=== PATIENT | male | born 1950 | race Two or more races ===

== ENCOUNTER 2016-12-21 18:26 | Emergency (ER) | payer SELFPAY ==
[~2016-12-21] VITALS: Ht 167.6 cm; Wt 86.2 kg
[2016-12-21] MEDS ORDERED: TYLENOL EXTRA500 MG ORAL (19:25)
[2016-12-21 19:35] VITALS: BP 208/97
[2016-12-21 20:00] VITALS: BP 208/97
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
== END 2016-12-21 20:00 | disposition home or self-care (01) ==
LOC: EDBD 18:26 → EMR 19:56
DX: M54.9 Dorsalgia, unspecified (principal); Z88.0 Allergy status to penicillin
CPT/HCPCS: 99284

== ENCOUNTER 2017-10-06 19:31 | Inpatient (IN) | payer OTHER ==
[~2017-10-06] VITALS: Ht 180.3 cm; Wt 88.0 kg
[~2017-10-06 19:31] MED LIST: TYLENOL EXTRA500 MG ORAL
[2017-10-06 19:45] VITALS: BP 139/71
[2017-10-06 19:53] VITALS: BP 152/79
[2017-10-06 21:33] LABS: BASOPHILS % (AUTO) 1.2 % (0.0-2.0); EOSINOPHILS % (AUTO) 1.5 % (0.0-3.0); HEMATOCRIT 32.9 % (42.0-52.0); HEMOGLOBIN 10.6 G/DL (14.2-18.0); LYMPHOCYTES % (AUTO) 23.5 % (20.0-45.0); MEAN CORPUSCULAR VOLUME 88 FL (80-99); MONOCYTES % (AUTO) 13.3 % (1.0-10.0); NEUTROPHILS % (AUTO) 60.5 % (45.0-75.0); PLATELET COUNT 181 K/UL (150-450); RED BLOOD COUNT 3.75 M/UL (4.70-6.10); RED CELL DISTRIBUTION WIDTH 15.2 % (11.6-14.8); WHITE BLOOD COUNT 5.1 K/UL (4.8-10.8)
[2017-10-06 21:44] LABS: ANION GAP 6 mmol/L (5-15); BLOOD UREA NITROGEN 52 mg/dL (7-18); CALCIUM 10.2 MG/DL (8.5-10.1); CARBON DIOXIDE 35 MMOL/L (21-32); CHLORIDE 96 MMOL/L (98-107); CREATININE 11.6 MG/DL (0.55-1.30); POTASSIUM 4.7 MMOL/L (3.5-5.1); SODIUM 137 MMOL/L (136-145)
[2017-10-06 21:49] LABS: ALANINE AMINOTRANSFERASE 14 U/L (12-78); ALBUMIN 3.1 G/DL (3.4-5.0); ALBUMIN/GLOBULIN RATIO 0.6 (1.0-2.7); ALKALINE PHOSPHATASE 69 U/L (46-116); ASPARTATE AMINO TRANSFERASE 10 U/L (15-37); BILIRUBIN,TOTAL 0.4 MG/DL (0.2-1.0)
[2017-10-06 22:00] VITALS: BP 148/68
--- NOTE | 2017-10-06 22:37 | Emergency Room Report ---
History of Present Illness General Chief Complaint: Wound Recheck/Suture Removal Source: Medical Record, EMS Present Illness HPI Patient is a 66-year-old male brought in by EMS after increased left foot swelling and discomfort. Patient had prior history of dementia and end-stage renal disease as well as diabetes. He was noted to have the penicillin allergy. He had been taking oral clindamycin. The patient had previously been ambulatory. The patient was sent in from [facility]. Is normally dialyzed Wednesday and Wednesday Allergies: Coded Allergies: PENICILLINS (Verified Allergy, Unknown, 10/06/17) Patient History Past Medical History: see triage record Reviewed Nursing Documentation: PMH: Agreed; PSxH: Agreed Nursing Documentation-PMH Past Medical History: No History, Except For Hx Hypertension: Yes Hx Dialysis: Yes - T, TH, SAT, -Shunt on Left arm Review of Systems All Other Systems: negative except mentioned in HPI Physical Exam Vital Signs Date Time Temp Pulse Resp B/P (MAP) Pulse Ox O2 Delivery O2 Flow Rate FiO2 10/06/17 19:31 99.4 64 16 139/71 98 Room Air 99.3 Sp02 EP Interpretation: reviewed, normal General Appearance: normal inspection, well appearing, no apparent distress, alert, GCS 15 Head: atraumatic ENT: normal ENT inspection, hearing grossly normal, normal voice Neck: normal inspection, full range of motion, supple, no bony tend Respiratory: normal inspection, lungs clear, normal breath sounds, no respiratory distress, no retraction, no wheezing Cardiovascular #1: regular rate, rhythm, no edema Gastrointestinal: normal inspection, normal bowel sounds, non tender, soft, no guarding, no hernia Genitourinary: no CVA tenderness Musculoskeletal: normal inspection, back normal, normal range of motion Neurologic: normal inspection, alert, responsive, speech normal Psychiatric: normal inspection, judgement/insight normal, mood/affect normal Skin: other - swelling to lateral aspect of left foot. ulceration to right foot Medical Decision Making Diagnostic Impression: Primary Impression: Right foot infection Additional Impressions: Diabetes Toe deformity, acquired ESRD (end stage renal disease) ER Course Patient presented for foot pain. Differential diagnoses included wasn't limited to fracture, sprain, dislocation, osteomyelitis, infected foot ulcer among others. Because of complexity of patient's case laboratory testing and imaging studies were ordered.Patient was noted to have evidence of the infection to the right foot. The patient started on IV antibiotics.Dr. Moise was contacted for inpatient management due to need for inpatient monitoring and treatment. Dr. Umaña was contacted for inpatient management. Labs Test 10/06/17 21:15 White Blood Count 5.1 K/UL (4.8-10.8) Red Blood Count 3.75 M/UL (4.70-6.10) Hemoglobin 10.6 G/DL (14.2-18.0) Hematocrit 32.9 % (42.0-52.0) Mean Corpuscular Volume 88 FL (80-99) Mean Corpuscular Hemoglobin 28.3 PG (27.0-31.0) Mean Corpuscular Hemoglobin Concent 32.3 G/DL (32.0-36.0) Red Cell Distribution Width 15.2 % (11.6-14.8) Platelet Count 181 K/UL (150-450) Mean Platelet Volume 5.9 FL (6.5-10.1) Neutrophils (%) (Auto) 60.5 % (45.0-75.0) Lymphocytes (%) (Auto) 23.5 % (20.0-45.0) Monocytes (%) (Auto) 13.3 % (1.0-10.0) Eosinophils (%) (Auto) 1.5 % (0.0-3.0) Basophils (%) (Auto) 1.2 % (0.0-2.0) Prothrombin Time 10.0 SEC (9.30-11.50) Prothromb Time International Ratio 1.0 (0.9-1.1) Activated Partial Thromboplast Time 26 SEC (23-33) Sodium Level 137 MMOL/L (136-145) Potassium Level 4.7 MMOL/L (3.5-5.1) Chloride Level 96 MMOL/L (98-107) Carbon Dioxide Level 35 MMOL/L (21-32) Anion Gap 6 mmol/L (5-15) Blood Urea Nitrogen 52 mg/dL (7-18) Creatinine 11.6 MG/DL (0.55-1.30) Estimat Glomerular Filtration Rate 4.4 mL/min (>60) Glucose Level 157 MG/DL (74-106) Calcium Level 10.2 MG/DL (8.5-10.1) Total Bilirubin 0.4 MG/DL (0.2-1.0) Aspartate Amino Transf (AST/SGOT) 10 U/L (15-37) Alanine Aminotransferase (ALT/SGPT) 14 U/L (12-78) Alkaline Phosphatase 69 U/L (46-116) Total Protein 8.0 G/DL (6.4-8.2) Albumin 3.1 G/DL (3.4-5.0) Globulin 4.9 g/dL Albumin/Globulin Ratio 0.6 (1.0-2.7) Last Vital Signs Date Time Temp Pulse Resp B/P (MAP) Pulse Ox O2 Delivery O2 Flow Rate FiO2 10/06/17 22:00 72 18 148/68 100 Room Air 10/06/17 19:53 98.2 98.2 Status: unchanged Disposition: ADMITTED INPATIENT Condition: Serious Referrals: NON PHYSICIAN (PCP) Rashad Harris MD Oct 06, 2017 22:36
[2017-10-06 22:43] VITALS: BP 148/68
[2017-10-06] MEDS ORDERED: AMLODIPINE BESY10 MG ORAL (23:28)
[2017-10-06] MEDS ORDERED: FOLIC ACID1 MG ORAL (23:28)
[2017-10-06] MEDS ORDERED: LEVEMIR FL100 UNIT/1 SUBQ (23:28)
[2017-10-06] MEDS ORDERED: CARVEDILOL25 MG ORAL (23:28)
[2017-10-06] MEDS ORDERED: CALCIUM ACETAT667 M1 PO (23:28)
[2017-10-06] MEDS ORDERED: ATORVASTATIN CA40 MG ORAL (23:28)
[2017-10-06] MEDS ORDERED: BASAGLAR INJ (23:28)
[2017-10-06] MEDS ORDERED: DIPHENOXYLATE-1 EACH PO (23:28)
[2017-10-06] MEDS ORDERED: BENAZEPRIL HCL20 MG ORAL (23:28)
[2017-10-06 23:41] VITALS: BP 158/89
[2017-10-07] MEDS ORDERED: Lomotil 2.5mg tab ORAL PRN
[2017-10-07] MEDS ORDERED: Acetaminophen 500mg (ES) tab ORAL PRN
[2017-10-07] MEDS: Carvedilol 25mg Tab ORAL SCH ×3 (00:41→21:39)
[2017-10-07] MEDS: Atorvastatin 80mg tab ORAL SCH ×2 (00:41→21:40)
[2017-10-07] MEDS: Heparin 5000 units/ml inj SUBQ SCH ×4 (00:42→21:48)
[2017-10-07 04:40] VITALS: BP 148/85
[2017-10-07] MEDS: NovoLOG Insulin Flexpen SUBQ SCH ×5 (05:16→21:50)
[2017-10-07 07:41] LABS: BASOPHILS % (AUTO) 0.7 % (0.0-2.0); EOSINOPHILS % (AUTO) 2.5 % (0.0-3.0); HEMATOCRIT 31.4 % (42.0-52.0); HEMOGLOBIN 10.3 G/DL (14.2-18.0); MEAN CORPUSCULAR VOLUME 88 FL (80-99); MONOCYTES % (AUTO) 12.5 % (1.0-10.0); NEUTROPHILS % (AUTO) 62.4 % (45.0-75.0); PLATELET COUNT 199 K/UL (150-450); RED BLOOD COUNT 3.57 M/UL (4.70-6.10); WHITE BLOOD COUNT 4.9 K/UL (4.8-10.8)
[2017-10-07 08:00] VITALS: BP 172/85
[2017-10-07 08:20] LABS: ALANINE AMINOTRANSFERASE 14 U/L (12-78); ALBUMIN/GLOBULIN RATIO 0.7 (1.0-2.7); ALKALINE PHOSPHATASE 63 U/L (46-116); ANION GAP 9 mmol/L (5-15); ASPARTATE AMINO TRANSFERASE 10 U/L (15-37); BILIRUBIN,TOTAL 0.4 MG/DL (0.2-1.0); BLOOD UREA NITROGEN 55 mg/dL (7-18); CARBON DIOXIDE 33 MMOL/L (21-32); CHLORIDE 97 MMOL/L (98-107); CREATININE 12.4 MG/DL (0.55-1.30); POTASSIUM 4.7 MMOL/L (3.5-5.1); SODIUM 139 MMOL/L (136-145)
--- NOTE | 2017-10-07 08:41 | History & Physical ---
History and Physical History & Physicial seen and examined. Full Dictation completed Comment: time of this note, doesn't reflect actual time of the encounter Nadir Moise MD Oct 07, 2017 08:41
--- NOTE | 2017-10-07 08:41 | General Progress Note ---
Assessment/Plan Assessment/Plan S: I am ok O: appears in mild pain in right foot PHYSICAL EXAMINATION: HEAD AND NECK: Atraumatic and normocephalic. CHEST: Clear to auscultation. HEART: S1 and S2. Regular rate and rhythm. ABDOMEN: Soft. No organomegaly. MUSCULOSKELETAL: Positive for the AV graft/shunt in the left upper extremity. Positive for chronic Charcot foot on right side. appropriately dressed. Mild tenderness. NEUROLOGY: The patient is awake, alert and oriented x2. Positive for decline in the cognition. Lack of memory. PSYCHIATRIC: Mood and affect is anxious. Meds : Reviewed and reconciled. Including Vanco and cefepim ASSESSMENT AND PLAN: 1. Chronic pain in feet concerning for acute on chronic osteomyelitis. 2. Chronic Charcot feet (more on the right than the left). 3. Diabetes type 2. 4. End-stage renal disease, on hemodialysis. 5. Chronic anemia. 6. GI and DVT prophylaxis. Plan: Pending eval by Podiatry and ID services current IV antibiotic recement Subjective Allergies: Coded Allergies: PENICILLINS (Verified Allergy, Unknown, 10/06/17) Objective Last 24 Hour Vital Signs Date Time Temp Pulse Resp B/P (MAP) Pulse Ox O2 Delivery O2 Flow Rate FiO2 10/07/17 04:53 95 Room Air 10/07/17 04:40 97.6 72 20 148/85 95 Room Air 97.6 10/07/17 00:41 71 158/89 10/06/17 23:41 97.9 71 18 158/89 100 Room Air 97.9 10/06/17 23:35 98.1 78 18 148/68 100 Room Air 98.1 10/06/17 22:43 98.1 78 18 148/68 100 Room Air 98.1 10/06/17 22:00 72 18 148/68 100 Room Air 10/06/17 19:53 98.2 65 16 152/79 100 Room Air 98.2 10/06/17 19:45 99.0 89 18 139/71 98 Room Air 99.0 10/06/17 19:31 99.4 64 16 139/71 98 Room Air 99.3 Intake and Output 10/06/17 10/07/17 19:00 07:00 Intake Total 220 ml Balance 220 ml Intake Oral 120 ml IV Total 100 ml Laboratory Tests 10/06/17 21:15: White Blood Count 5.1, Red Blood Count 3.75L, Hemoglobin 10.6L, Hematocrit 32.9L , Mean Corpuscular Volume 88, Mean Corpuscular Hemoglobin 28.3, Mean Corpuscular Hemoglobin Concent 32.3, Red Cell Distribution Width 15.2H, Platelet Count 181, Mean Platelet Volume 5.9L, Neutrophils (%) (Auto) 60.5, Lymphocytes (%) (Auto) 23.5, Monocytes (%) (Auto) 13.3H, Eosinophils (%) (Auto) 1.5, Basophils (%) (Auto) 1.2, Prothrombin Time 10.0, Prothromb Time International Ratio 1.0, Activated Partial Thromboplast Time 26, Sodium Level 137, Potassium Level 4.7, Chloride Level 96L, Carbon Dioxide Level 35H, Anion Gap 6, Blood Urea Nitrogen 52H, Creatinine 11.6H, Estimat Glomerular Filtration Rate 4.4, Glucose Level 157H, Calcium Level 10.2H, Total Bilirubin 0.4, Aspartate Amino Transf (AST/SGOT) 10L, Alanine Aminotransferase (ALT/SGPT) 14, Alkaline Phosphatase 69, Total Protein 8.0, Albumin 3.1L, Globulin 4.9, Albumin/ Globulin Ratio 0.6L 10/07/17 07:20: White Blood Count 4.9, Red Blood Count 3.57L, Hemoglobin 10.3L, Hematocrit 31.4L , Mean Corpuscular Volume 88, Mean Corpuscular Hemoglobin 28.8, Mean Corpuscular Hemoglobin Concent 32.7, Red Cell Distribution Width 15.0H, Platelet Count 199, Mean Platelet Volume 6.6, Neutrophils (%) (Auto) 62.4, Lymphocytes (%) (Auto) 22.0, Monocytes (%) (Auto) 12.5H, Eosinophils (%) (Auto) 2.5, Basophils (%) (Auto) 0.7, Sodium Level 139, Potassium Level 4.7, Chloride Level 97L, Carbon Dioxide Level 33H, Anion Gap 9, Blood Urea Nitrogen 55H, Creatinine 12.4H, Estimat Glomerular Filtration Rate 4.1, Glucose Level 116H, Calcium Level 10.0, Total Bilirubin 0.4, Aspartate Amino Transf (AST/SGOT) 10L, Alanine Aminotransferase (ALT/SGPT) 14, Alkaline Phosphatase 63, Total Protein 7.6, Albumin 3.0L, Globulin 4.6, Albumin/Globulin Ratio 0.7L Height (Feet): 5 Height (Inches): 11.00 Weight (Pounds): 178 Nadir Moise MD Oct 07, 2017 08:41
[2017-10-07] MEDS: Calcium Acetate 667mg Tab ORAL SCH ×3 (09:05→18:32)
--- NOTE | 2017-10-07 10:04 | Consultation ---
Consult Note Consult Note asked to eval for dialysis management Patient is a 66-year-old male brought in by EMS after increased left foot swelling and discomfort. Patient had prior history of dementia and end-stage renal disease as well as diabetes. He was noted to have the penicillin allergy. He had been taking oral clindamycin. The patient had previously been ambulatory. The patient was sent in from [facility]. Is normally dialyzed Wednesday and Wednesday Allergies: PENICILLINS (Verified Allergy, Unknown, 10/06/17) Past Medical History: No History, Except For Hx Hypertension: Yes Hx Dialysis: Yes - T, TH, SAT, -Shunt on Left arm non historian examined data reviewed Assessment/Plan ESRD (end stage renal disease) due HD today has left arm fistula Dementia HTN Right foot infection Diabetes Toe deformity, acquired Plab: HD today BP management PELON ESCALONA Oct 07, 2017 10:04
[2017-10-07 10:32] LABS: PHOSPHORUS 3.4 MG/DL (2.5-4.9)
--- NOTE | 2017-10-07 11:53 | Diagnostic Imaging Report ---
Indication: Pain Comparison: None Findings: 3 views of the right foot were obtained. There is absence of most of the fifth proximal phalange and a part of the middle phalange. Correlate clinically. Osteomyelitis is not excluded. Soft tissue swelling is noted involving the fifth toe. Bones are osteopenic. Prominent calcaneal spur noted. Extensive vascular calcifications are present. IMPRESSION: Prominent erosion involving the middle and proximal fifth phalange. Correlate for acute osteomyelitis
[2017-10-07 12:00] VITALS: BP 166/81
--- NOTE | 2017-10-07 12:18 | Infectious Diseases Prog Note ---
Assessment/Plan Problems: (1) Right foot infection Assessment & Plan: will start vancomycin with cefepime empiric coverage, and order MRI of the foot to rule out osteomyelitis, check ESR (2) Foot osteomyelitis, right Assessment & Plan: right fifth toe infection with erosions on X ray , rule out underlying osteomyelitis, will order ESR, and MRI of the right foot (3) ESRD (end stage renal disease) Assessment & Plan: on HD renal is following (4) Diabetes Assessment & Plan: recommend tight glycemic control to keep blood glucose between 100-140 Subjective Allergies: Coded Allergies: PENICILLINS (Verified Allergy, Unknown, 10/06/17) Objective Vital Signs Last 24 Hour Vital Signs Date Time Temp Pulse Resp B/P (MAP) Pulse Ox O2 Delivery O2 Flow Rate FiO2 10/07/17 12:00 98.0 71 18 166/81 97 Room Air 98.0 10/07/17 09:06 97 172/85 10/07/17 09:06 97 172/85 10/07/17 08:00 Room Air 10/07/17 08:00 97.0 75 19 172/85 99 97.0 10/07/17 04:53 95 Room Air 10/07/17 04:40 97.6 72 20 148/85 95 Room Air 97.6 10/07/17 00:41 71 158/89 10/06/17 23:41 97.9 71 18 158/89 100 Room Air 97.9 10/06/17 23:35 98.1 78 18 148/68 100 Room Air 98.1 10/06/17 22:43 98.1 78 18 148/68 100 Room Air 98.1 10/06/17 22:00 72 18 148/68 100 Room Air 10/06/17 19:53 98.2 65 16 152/79 100 Room Air 98.2 10/06/17 19:45 99.0 89 18 139/71 98 Room Air 99.0 10/06/17 19:31 99.4 64 16 139/71 98 Room Air 99.3 Height (Feet): 5 Height (Inches): 11.00 Weight (Pounds): 177 Laboratory Tests Test 10/06/17 21:15 10/07/17 07:20 White Blood Count 5.1 K/UL (4.8-10.8) 4.9 K/UL (4.8-10.8) Red Blood Count 3.75 M/UL (4.70-6.10) L 3.57 M/UL (4.70-6.10) L Hemoglobin 10.6 G/DL (14.2-18.0) L 10.3 G/DL (14.2-18.0) L Hematocrit 32.9 % (42.0-52.0) L 31.4 % (42.0-52.0) L Mean Corpuscular Volume 88 FL (80-99) 88 FL (80-99) Mean Corpuscular Hemoglobin 28.3 PG (27.0-31.0) 28.8 PG (27.0-31.0) Mean Corpuscular Hemoglobin Concent 32.3 G/DL (32.0-36.0) 32.7 G/DL (32.0-36.0) Red Cell Distribution Width 15.2 % (11.6-14.8) H 15.0 % (11.6-14.8) H Platelet Count 181 K/UL (150-450) 199 K/UL (150-450) Mean Platelet Volume 5.9 FL (6.5-10.1) L 6.6 FL (6.5-10.1) Neutrophils (%) (Auto) 60.5 % (45.0-75.0) 62.4 % (45.0-75.0) Lymphocytes (%) (Auto) 23.5 % (20.0-45.0) 22.0 % (20.0-45.0) Monocytes (%) (Auto) 13.3 % (1.0-10.0) H 12.5 % (1.0-10.0) H Eosinophils (%) (Auto) 1.5 % (0.0-3.0) 2.5 % (0.0-3.0) Basophils (%) (Auto) 1.2 % (0.0-2.0) 0.7 % (0.0-2.0) Prothrombin Time 10.0 SEC (9.30-11.50) Prothromb Time International Ratio 1.0 (0.9-1.1) Activated Partial Thromboplast Time 26 SEC (23-33) Sodium Level 137 MMOL/L (136-145) 139 MMOL/L (136-145) Potassium Level 4.7 MMOL/L (3.5-5.1) 4.7 MMOL/L (3.5-5.1) Chloride Level 96 MMOL/L (98-107) L 97 MMOL/L (98-107) L Carbon Dioxide Level 35 MMOL/L (21-32) H 33 MMOL/L (21-32) H Anion Gap 6 mmol/L (5-15) 9 mmol/L (5-15) Blood Urea Nitrogen 52 mg/dL (7-18) H 55 mg/dL (7-18) H Creatinine 11.6 MG/DL (0.55-1.30) H 12.4 MG/DL (0.55-1.30) H Estimat Glomerular Filtration Rate 4.4 mL/min (>60) 4.1 mL/min (>60) Glucose Level 157 MG/DL (74-106) H 116 MG/DL (74-106) H Calcium Level 10.2 MG/DL (8.5-10.1) H 10.0 MG/DL (8.5-10.1) Total Bilirubin 0.4 MG/DL (0.2-1.0) 0.4 MG/DL (0.2-1.0) Aspartate Amino Transf (AST/SGOT) 10 U/L (15-37) L 10 U/L (15-37) L Alanine Aminotransferase (ALT/SGPT) 14 U/L (12-78) 14 U/L (12-78) Alkaline Phosphatase 69 U/L (46-116) 63 U/L (46-116) Total Protein 8.0 G/DL (6.4-8.2) 7.6 G/DL (6.4-8.2) Albumin 3.1 G/DL (3.4-5.0) L 3.0 G/DL (3.4-5.0) L Globulin 4.9 g/dL 4.6 g/dL Albumin/Globulin Ratio 0.6 (1.0-2.7) L 0.7 (1.0-2.7) L Hemoglobin A1c 5.4 % (4.3-6.0) Phosphorus Level 3.4 MG/DL (2.5-4.9) Magnesium Level 2.5 MG/DL (1.8-2.4) H C-Reactive Protein, Quantitative 2.6 mg/dL (0.00-0.90) H Pro-B-Type Natriuretic Peptide 83344 pg/mL (0-125) H Current Medications Medications (Trade) Dose Ordered Sig/Jose Route PRN Reason Start Time Stop Time Status Last Admin Dose Admin Acetaminophen (Tylenol) 500 mg Q8H PRN ORAL Prn Headache/Temp > 101 10/07/17 00:00 11/06/17 00:00 Amlodipine Besylate (Norvasc) 10 mg DAILY ORAL 10/07/17 09:00 11/06/17 08:59 10/07/17 09:06 Atorvastatin Calcium (Lipitor) 40 mg BEDTIME ORAL 10/07/17 00:27 11/06/17 00:26 10/07/17 00:41 Calcium Acetate (Phoslo) 667 mg TID ORAL 10/07/17 09:00 11/06/17 08:59 10/07/17 09:05 Carvedilol (Coreg) 25 mg EVERY 12 HOURS ORAL 10/07/17 00:28 11/06/17 00:27 10/07/17 09:06 Clonidine HCl (Catapres Tab) 0.1 mg Q4H PRN ORAL bp over 160 syst 10/07/17 10:15 11/06/17 10:14 Dextrose (Dextrose 50%) 25 ml STAT PRN IV Hypoglycemia 10/07/17 00:00 11/06/17 00:00 Dextrose (Dextrose 50%) 50 ml STAT PRN IV Hypoglycemia 10/07/17 00:00 11/06/17 00:00 Diphenhydramine HCl (Benadryl) 25 mg EVERY 12 HOURS PRN ORAL Itching 10/07/17 00:00 11/06/17 00:00 Diphenoxylate HCl/ Atropine (Lomotil) 2.5 mg Q8HR PRN ORAL Diarrhea 10/07/17 00:00 11/06/17 00:00 Folic Acid (Folate) 1 mg DAILY ORAL 10/07/17 09:00 11/06/17 08:59 10/07/17 09:06 Heparin Sodium (Porcine) (Heparin 5000 units/ml) 5,000 units EVERY 12 HOURS SUBQ 10/07/17 00:33 11/06/17 00:32 10/07/17 00:42 Insulin Aspart (NovoLOG) BEFORE MEALS AND HS SUBQ 10/07/17 06:30 11/06/17 06:29 10/07/17 05:16 Insulin Detemir (Levemir) 10 units BEDTIME SUBQ 10/07/17 21:00 11/06/17 20:59 Levofloxacin 50 ml @ 50 mls/hr Q48H IVPB 10/08/17 22:00 10/15/17 21:59 Pantoprazole (Protonix) 40 mg DAILY ORAL 10/07/17 09:00 11/06/17 08:59 10/07/17 09:05 Lorri Lim M.D. Oct 07, 2017 12:18
[2017-10-07] MEDS ORDERED: Cefepime HCl 2 GM in D5W 110 ML IVPB ONE (14:00)
--- NOTE | 2017-10-07 14:08 | Podiatric Progress Note ---
Assessment/Plan Patient Woody Johnson is a 66 year old male who was admitted on Oct 06, 2017 at 21:54 with Assessment/Plan A/ 1) Diabetic ulcer right 5th toe - osteomyelitis? 2) DM neuropathy 3) h/o amputated toe left 2nd - healed 4) ESRD P/ 1) Ordered MRI of right foot without contrast 2) Ordered wound care 3) ID recs appreciated. Abx per ID 4) No weight bearing restrictions 5) Will follow Subjective Allergies: Coded Allergies: PENICILLINS (Verified Allergy, Unknown, 10/06/17) Subjective Patient states that he has 2 day history of wound. Denies pain f/c/n/v. Objective Exam Last 24 Hour Vital Signs Date Time Temp Pulse Resp B/P (MAP) Pulse Ox O2 Delivery O2 Flow Rate FiO2 10/07/17 12:00 98.0 71 18 166/81 97 Room Air 98.0 10/07/17 09:06 97 172/85 10/07/17 09:06 97 172/85 10/07/17 08:00 Room Air 10/07/17 08:00 97.0 75 19 172/85 99 97.0 10/07/17 04:53 95 Room Air 10/07/17 04:40 97.6 72 20 148/85 95 Room Air 97.6 10/07/17 00:41 71 158/89 10/06/17 23:41 97.9 71 18 158/89 100 Room Air 97.9 10/06/17 23:35 98.1 78 18 148/68 100 Room Air 98.1 10/06/17 22:43 98.1 78 18 148/68 100 Room Air 98.1 10/06/17 22:00 72 18 148/68 100 Room Air 10/06/17 19:53 98.2 65 16 152/79 100 Room Air 98.2 10/06/17 19:45 99.0 89 18 139/71 98 Room Air 99.0 10/06/17 19:31 99.4 64 16 139/71 98 Room Air 99.3 Laboratory Tests Test 10/06/17 21:15 10/07/17 07:20 10/07/17 12:36 White Blood Count 5.1 K/UL (4.8-10.8) 4.9 K/UL (4.8-10.8) Red Blood Count 3.75 M/UL (4.70-6.10) L 3.57 M/UL (4.70-6.10) L Hemoglobin 10.6 G/DL (14.2-18.0) L 10.3 G/DL (14.2-18.0) L Hematocrit 32.9 % (42.0-52.0) L 31.4 % (42.0-52.0) L Mean Corpuscular Volume 88 FL (80-99) 88 FL (80-99) Mean Corpuscular Hemoglobin 28.3 PG (27.0-31.0) 28.8 PG (27.0-31.0) Mean Corpuscular Hemoglobin Concent 32.3 G/DL (32.0-36.0) 32.7 G/DL (32.0-36.0) Red Cell Distribution Width 15.2 % (11.6-14.8) H 15.0 % (11.6-14.8) H Platelet Count 181 K/UL (150-450) 199 K/UL (150-450) Mean Platelet Volume 5.9 FL (6.5-10.1) L 6.6 FL (6.5-10.1) Neutrophils (%) (Auto) 60.5 % (45.0-75.0) 62.4 % (45.0-75.0) Lymphocytes (%) (Auto) 23.5 % (20.0-45.0) 22.0 % (20.0-45.0) Monocytes (%) (Auto) 13.3 % (1.0-10.0) H 12.5 % (1.0-10.0) H Eosinophils (%) (Auto) 1.5 % (0.0-3.0) 2.5 % (0.0-3.0) Basophils (%) (Auto) 1.2 % (0.0-2.0) 0.7 % (0.0-2.0) Prothrombin Time 10.0 SEC (9.30-11.50) Prothromb Time International Ratio 1.0 (0.9-1.1) Activated Partial Thromboplast Time 26 SEC (23-33) Sodium Level 137 MMOL/L (136-145) 139 MMOL/L (136-145) Potassium Level 4.7 MMOL/L (3.5-5.1) 4.7 MMOL/L (3.5-5.1) Chloride Level 96 MMOL/L (98-107) L 97 MMOL/L (98-107) L Carbon Dioxide Level 35 MMOL/L (21-32) H 33 MMOL/L (21-32) H Anion Gap 6 mmol/L (5-15) 9 mmol/L (5-15) Blood Urea Nitrogen 52 mg/dL (7-18) H 55 mg/dL (7-18) H Creatinine 11.6 MG/DL (0.55-1.30) H 12.4 MG/DL (0.55-1.30) H Estimat Glomerular Filtration Rate 4.4 mL/min (>60) 4.1 mL/min (>60) Glucose Level 157 MG/DL (74-106) H 116 MG/DL (74-106) H Calcium Level 10.2 MG/DL (8.5-10.1) H 10.0 MG/DL (8.5-10.1) Total Bilirubin 0.4 MG/DL (0.2-1.0) 0.4 MG/DL (0.2-1.0) Aspartate Amino Transf (AST/SGOT) 10 U/L (15-37) L 10 U/L (15-37) L Alanine Aminotransferase (ALT/SGPT) 14 U/L (12-78) 14 U/L (12-78) Alkaline Phosphatase 69 U/L (46-116) 63 U/L (46-116) Total Protein 8.0 G/DL (6.4-8.2) 7.6 G/DL (6.4-8.2) Albumin 3.1 G/DL (3.4-5.0) L 3.0 G/DL (3.4-5.0) L Globulin 4.9 g/dL 4.6 g/dL Albumin/Globulin Ratio 0.6 (1.0-2.7) L 0.7 (1.0-2.7) L Hemoglobin A1c 5.4 % (4.3-6.0) Phosphorus Level 3.4 MG/DL (2.5-4.9) Magnesium Level 2.5 MG/DL (1.8-2.4) H C-Reactive Protein, Quantitative 2.6 mg/dL (0.00-0.90) H Pro-B-Type Natriuretic Peptide 34879 pg/mL (0-125) H Erythrocyte Sedimentation Rate Pending General Appearance: WD/WN, no apparent distress Musculoskeletal Muscle strength grading: grade 5 - muscle strength of Musculoskeletal left 2nd toe amp that is healed Vascular Pulses: 2 dorsalis pedis (R), 2 dorsalis pedis (L), 2 posterior tibial (R), 2 posterior tibial (L) Edema: no edema noted foot (L), no edema noted foot (R), no edema noted ankle ( L), no edema noted ankle (R), no edema noted leg (L), no edema noted leg (R) Temperature: within normal limits Neurological Light touch: decreased sensation bilat Dermatological Wound Assessment : Wound location: right, toe Wound Length (mm): 0.2 Wound Width (mm): 0.2 Wound Depth: 0.3 Castano Classification: 3 deep abcess or osteomye Probes to bone: Yes Exudate Description: serous Exudate Amount: Scant Wound Margin: well circumscribed Malodor: none/absent Skin Surrounding Wound: intact Temperature: within normal limits Pain 0-10: 0 Dermatological Narrative right 5th toe ulcer Henrik Umaña DPM Oct 07, 2017 14:08
[2017-10-07] MEDS ORDERED: Vancomycin 1.5 GM/D5W 250ML IVPB ONE (14:30)
[2017-10-07 15:30] VITALS: BP 174/88
[2017-10-07 16:00] VITALS: BP 174/88
--- NOTE | 2017-10-07 16:46 | History and Physical Report ---
DATE OF ADMISSION: 10/06/2017 SOURCE OF INFORMATION: The patient and EMR. HISTORY OF PRESENT ILLNESS: The patient is a 66-year-old, male with the history of end-stage renal disease. The patient is poor historian. He is not talkative. The patient does not appear to be in any distress. Reportedly, the patient had been transferred from a assisted secondary to increase in the swelling and pain in the foot. There is no reported nausea, diarrhea or vomitus. There is no reported missed dialysis. ALLERGIES: Penicillin. REVIEW OF SYSTEMS: All 12 elements of review of systems reviewed. Within that limitation reported as above. PAST MEDICAL HISTORY: He has end-stage renal disease, on hemodialysis, hypertension, hyperlipidemia, and diabetes. FAMILY HISTORY: Reviewed, noncontributory. SOCIAL HISTORY: The patient is currently residing in a custodial facility. The remainder of information cannot be obtained (the patient is not willing to talk at this moment). PHYSICAL EXAMINATION: VITAL SIGNS: Blood pressure 150/80, temperature 98.2 degrees, pulse oximetry 98% on room, respiratory rate 18, and temperature 98.2 degrees. HEAD AND NECK: Atraumatic and normocephalic. CHEST: Clear to auscultation. HEART: S1 and S2. Regular rate and rhythm. ABDOMEN: Soft. No organomegaly. MUSCULOSKELETAL: Positive for the AV graft/shunt in the left upper extremity. NEUROLOGY: The patient is awake, alert and oriented x2. Positive for decline in the cognition. Lack of memory. PSYCHIATRIC: Mood and affect is anxious. LABORATORY AND DIAGNOSTIC DATA: Labs shows WBC 5.1, hemoglobin of 10.6, and platelet count of 181. Sodium 137, potassium 4.7, BUN 52, and creatinine 11.6. AST and ALT are within normal limits. ASSESSMENT AND PLAN: 1. Chronic pain in feet concerning for acute on chronic osteomyelitis. 2. Chronic Charcot feet (more on the right than the left). 3. Diabetes type 2. 4. End-stage renal disease, on hemodialysis. 5. Chronic anemia. 6. GI and DVT prophylaxis. We will continue with the current insulin regimen. Nephrology, Dr. Jacobo is consulted. Continue with current empiric antibiotic treatment. Infectious Disease is consulted. Library Acquisitions Technician, Dr. Umaña is consulted. We will continue with the current management. Yamelammaantwon Moise M.D. DR: ROCKY JOB#: [id number] CC:
--- NOTE | 2017-10-07 17:01 | Consultation ---
DATE OF CONSULTATION: 10/07/2017 INFECTIOUS DISEASE CONSULTATION CONSULTING PHYSICIAN: Lorri Lim M.D. REQUESTING PHYSICIAN: Nadir Moise M.D. REASON FOR CONSULTATION: Right foot small toe infection, possible osteomyelitis in dialysis patient. Recommendation for antibiotics treatment. HISTORY OF PRESENT ILLNESS: The patient is a 66-year-old male with past medical history of end-stage renal disease on hemodialysis and hypertension, was brought into [facility] emergency room for right foot swelling and discomfort. The patient has been taking oral clindamycin with no significant improvement. He normally lives at [facility] and he is ambulatory, but no more because of his right foot small toe infection on cellulitis. The patient was admitted to the hospital for his right foot pain, started on Levaquin only and Infectious Disease consultation was requested for further evaluation and management. As of note, the patient is a poor historian and cannot provide good history. History was mainly obtained from the medical record. PAST MEDICAL HISTORY: Significant for end-stage renal disease, on hemodialysis and hypertension. PAST SURGICAL HISTORY: Not on record. MEDICATIONS: The patient was started on Levaquin. For the rest of his medications, please refer to MAR. ALLERGIES: He is allergic to penicillin, but unclear what kind of allergy. FAMILY HISTORY: Unable to obtain. SOCIAL HISTORY: He lives in [facility] with no recent drugs, tobacco, or alcohol. REVIEW OF SYSTEMS: Unable to obtain. The patient is a poor historian. PHYSICAL EXAMINATION: VITAL SIGNS: Temperature 98, pulse 71, respirations 18, blood pressure 166/81, and saturation 97% on room air. GENERAL: A middle-aged male, up in bed, awake, alert, English speaker, not in acute distress. HEENT: Normocephalic and atraumatic. Pupils reactive to light. Moist oral mucosa. No exudate. NECK: Supple. No lymphadenopathy. CARDIOVASCULAR: Regular rate and rhythm. No murmur or gallop. LUNGS: Clear bilaterally. Diminished breathing sounds at the bases. ABDOMEN: Soft, nontender, and nondistended. Positive bowel sounds. No hepatosplenomegaly or ascites. EXTREMITIES: He has edema in the right foot involving the right fifth toe with swelling and redness of the skin. Unable to see open wound or drainage from the toe. LABORATORY DATA: Labs showed white count of 4.9, hemoglobin of 10.3, and platelet count of 199,000. BUN of 55 and creatinine of 12.4. AST of 10 and ALT of 14. IMAGING: Foot x-ray showed prominent erosion involving the middle and proximal fifth phalanges, possible acute osteo. Venous Doppler was negative. ASSESSMENT AND PLAN: 1. Right diabetic foot infection. We will start vancomycin and cefepime empiric coverage and order MRI of the foot to rule out osteomyelitis. Check sedimentation rate. 2. Foot osteomyelitis on the right fifth toe infection with erosive changes on x-ray, most likely suggesting osteomyelitis. We will order sedimentation rate and MRI of the right foot. 3. End-stage renal disease, on hemodialysis. Renal is following. 4. Diabetes. Recommend tight glycemic control to keep blood glucose between 100 to 140. Thank you for the consult. ID will continue to follow. Lorri Lim M.D. DR: DELTA JOB#: [id number] CC:
[2017-10-07 19:15] VITALS: BP 145/73
[2017-10-07] MEDS: Levemir Flexpen SUBQ SCH ×2 (21:00→21:49)
[2017-10-08] VITALS (9 sets, daily range): BP systolic 115–148; BP diastolic 59–85
[2017-10-08] MEDS: NovoLOG Insulin Flexpen SUBQ SCH ×4 (06:30→21:00)
[2017-10-08 07:16] LABS: BASOPHILS % (AUTO) 0.6 % (0.0-2.0); EOSINOPHILS % (AUTO) 1.9 % (0.0-3.0); HEMATOCRIT 31.7 % (42.0-52.0); HEMOGLOBIN 10.2 G/DL (14.2-18.0); LYMPHOCYTES % (AUTO) 19.2 % (20.0-45.0); MEAN CORPUSCULAR VOLUME 88 FL (80-99); MONOCYTES % (AUTO) 9.5 % (1.0-10.0); NEUTROPHILS % (AUTO) 68.8 % (45.0-75.0); PLATELET COUNT 205 K/UL (150-450); RED BLOOD COUNT 3.59 M/UL (4.70-6.10); RED CELL DISTRIBUTION WIDTH 14.8 % (11.6-14.8)
[2017-10-08 07:27] LABS: ALANINE AMINOTRANSFERASE 14 U/L (12-78); ALBUMIN 3.1 G/DL (3.4-5.0); ALBUMIN/GLOBULIN RATIO 0.6 (1.0-2.7); ALKALINE PHOSPHATASE 66 U/L (46-116); ANION GAP 6 mmol/L (5-15); ASPARTATE AMINO TRANSFERASE 8 U/L (15-37); BILIRUBIN,TOTAL 0.6 MG/DL (0.2-1.0); BLOOD UREA NITROGEN 41 mg/dL (7-18); CALCIUM 9.3 MG/DL (8.5-10.1); CARBON DIOXIDE 36 MMOL/L (21-32); CHLORIDE 93 MMOL/L (98-107); CHOLESTEROL 82 MG/DL (< 200); CREATININE 9.6 MG/DL (0.55-1.30); HDL CHOLESTEROL 36 MG/DL (40-60); PHOSPHORUS 3.4 MG/DL (2.5-4.9); SODIUM 135 MMOL/L (136-145); TRIGLYCERIDES 123 MG/DL (30-150)
[2017-10-08] MEDS: Heparin 5000 units/ml inj SUBQ SCH ×3 (09:00→21:18)
[2017-10-08] MEDS: Carvedilol 25mg Tab ORAL SCH ×2 (09:28→21:09)
[2017-10-08] MEDS: Calcium Acetate 667mg Tab ORAL SCH ×3 (09:28→17:04)
--- NOTE | 2017-10-08 10:53 | General Progress Note ---
Assessment/Plan Assessment/Plan S: I am ok O: appears comfortable. PHYSICAL EXAMINATION: HEAD AND NECK: Atraumatic and normocephalic. CHEST: Clear to auscultation. HEART: S1 and S2. Regular rate and rhythm. ABDOMEN: Soft. No organomegaly. MUSCULOSKELETAL: Positive for the AV graft/shunt in the left upper extremity. Positive for chronic Charcot foot on right side. appropriately dressed. Mild tenderness. NEUROLOGY: The patient is awake, alert and oriented x2. Positive for decline in the cognition. Lack of memory. PSYCHIATRIC: Mood and affect is anxious. Meds : Reviewed and reconciled. Including Vanco and cefepim ASSESSMENT AND PLAN: 1. Chronic pain in feet concerning for acute on chronic osteomyelitis. 2. Chronic Charcot feet (more on the right than the left). 3. Diabetes type 2. 4. End-stage renal disease, on hemodialysis. 5. Chronic anemia. 6. GI and DVT prophylaxis. Plan: Pending Imaging study results current IV antibiotic recement Subjective Allergies: Coded Allergies: PENICILLINS (Verified Allergy, Unknown, 10/06/17) Objective Last 24 Hour Vital Signs Date Time Temp Pulse Resp B/P (MAP) Pulse Ox O2 Delivery O2 Flow Rate FiO2 10/08/17 09:28 70 127/81 10/08/17 09:28 70 127/81 10/08/17 08:00 98.4 70 20 127/81 99 Room Air 98.4 10/08/17 04:00 98.0 65 19 148/80 97 Room Air 98.0 10/08/17 00:00 98.6 66 18 148/85 98 Room Air 98.6 10/07/17 21:39 99 149/83 10/07/17 19:15 Room Air 10/07/17 19:15 98.5 65 20 145/73 Room Air 98.5 10/07/17 16:00 98.1 65 20 174/88 99 98.1 10/07/17 15:30 98.1 65 20 174/88 Room Air 98.1 10/07/17 15:30 Room Air 10/07/17 12:00 98.0 71 18 166/81 97 Room Air 98.0 Intake and Output 10/07/17 10/08/17 19:00 07:00 Output Total 2000 ml Balance -2000 ml Output Hemodialysis UF 2000 ml # Voids 2 # Bowel Movements 1 Laboratory Tests 10/07/17 12:36: Erythrocyte Sedimentation Rate 87H 10/08/17 05:50: White Blood Count 6.0, Red Blood Count 3.59L, Hemoglobin 10.2L, Hematocrit 31.7L , Mean Corpuscular Volume 88, Mean Corpuscular Hemoglobin 28.5, Mean Corpuscular Hemoglobin Concent 32.3, Red Cell Distribution Width 14.8, Platelet Count 205, Mean Platelet Volume 6.1L, Neutrophils (%) (Auto) 68.8, Lymphocytes ( %) (Auto) 19.2L, Monocytes (%) (Auto) 9.5, Eosinophils (%) (Auto) 1.9, Basophils (%) (Auto) 0.6, Sodium Level 135L, Potassium Level 4.0, Chloride Level 93L, Carbon Dioxide Level 36H, Anion Gap 6, Blood Urea Nitrogen 41H, Creatinine 9.6H, Estimat Glomerular Filtration Rate 5.5, Glucose Level 112H, Uric Acid 4.6, Calcium Level 9.3, Phosphorus Level 3.4, Magnesium Level 2.3, Total Bilirubin 0.6, Aspartate Amino Transf (AST/SGOT) 8L, Alanine Aminotransferase (ALT/SGPT) 14, Alkaline Phosphatase 66, Troponin I 0.038, C- Reactive Protein, Quantitative 2.2H, Total Protein 7.9, Albumin 3.1L, Globulin 4.8, Albumin/Globulin Ratio 0.6L, Triglycerides Level 123, Cholesterol Level 82 , LDL Cholesterol 41, HDL Cholesterol 36L, Cholesterol/HDL Ratio 2.3L, Thyroid Stimulating Hormone (TSH) 0.636 Height (Feet): 5 Height (Inches): 11.00 Weight (Pounds): 177 Nadir Moise MD Oct 08, 2017 10:53
--- NOTE | 2017-10-08 12:35 | Diagnostic Imaging Report ---
Indication: Open wound on fifth toe, suspected osteomyelitis, abnormal fluid radiograph Technique: Sagittal, axial, and coronal sagittal T1 fast spin echo and fast spin echo STIR images of the right forefoot Comparison: Reference made to plain radiograph dated 10/06/2017 Findings: High STIR signal is seen within the fifth proximal, middle, and distal phalanges. Low T1 signal is seen in the entirety of the middle phalanx, in the distal aspect of the proximal phalanx, and to some extent involving the distal phalanx. The distal aspect of the proximal phalanx and in the entire middle phalanx appears essentially replaced with abnormal signal. There is extensive soft tissue edema of the fifth toe. There is evidence of superolateral ulceration of the skin. No other marrow signal abnormalities are demonstrated. There is possibly a tiny fluid collection projected dorsal to the head of the fourth metacarpal, measuring approximately 6 x 5 mm in diameter. No other focal fluid collections to suggest drainable abscess demonstrated. Impression: Positive for evidence of osteomyelitis of the fifth proximal, middle, and distal phalanges. This correlates with abnormalities demonstrated on recent foot radiograph. Abnormal soft tissue edema of the fifth toe, most likely on the basis of soft tissue cellulitis. Associated ulcer also noted Small focal fluid dorsal to the head of the fourth metatarsal. This probably represents a small focal joint effusion. No definite drainable abscess collection demonstrated.
[2017-10-08] MEDS ORDERED: Cefepime HCl 1 GM in D5W 110 ML IVPB SCH (14:00)
--- NOTE | 2017-10-08 14:51 | Nephrology Progress Note ---
Assessment/Plan Problem List: (1) ESRD (end stage renal disease) (2) Diabetes (3) Foot osteomyelitis, right (4) Hypertensive kidney disease Assessment ESRD (end stage renal disease) due HD today has left arm fistula Dementia HTN Right foot infection Diabetes Toe deformity, acquired Plan HD yesterday next in am BP management Subjective ROS Limited/Unobtainable: No Constitutional: Reports: malaise, weakness Objective Objective Last 24 Hour Vital Signs Date Time Temp Pulse Resp B/P (MAP) Pulse Ox O2 Delivery O2 Flow Rate FiO2 10/08/17 12:00 97.9 70 20 134/78 99 Room Air 97.9 10/08/17 09:28 70 127/81 10/08/17 09:28 70 127/81 10/08/17 08:30 98.2 65 18 132/83 98 Room Air 98.2 10/08/17 08:00 98.4 70 20 127/81 99 Room Air 98.4 10/08/17 07:30 98.2 68 20 129/80 99 Room Air 98.2 10/08/17 04:00 98.0 65 19 148/80 97 Room Air 98.0 10/08/17 00:00 98.6 66 18 148/85 98 Room Air 98.6 10/07/17 21:39 99 149/83 10/07/17 19:15 Room Air 10/07/17 19:15 98.5 65 20 145/73 Room Air 98.5 10/07/17 16:00 98.1 65 20 174/88 99 98.1 10/07/17 15:30 98.1 65 20 174/88 Room Air 98.1 10/07/17 15:30 Room Air Intake and Output 10/07/17 10/08/17 19:00 07:00 Output Total 2000 ml Balance -2000 ml Output Hemodialysis UF 2000 ml # Voids 2 # Bowel Movements 1 Laboratory Tests 10/08/17 05:50: White Blood Count 6.0, Red Blood Count 3.59L, Hemoglobin 10.2L, Hematocrit 31.7L , Mean Corpuscular Volume 88, Mean Corpuscular Hemoglobin 28.5, Mean Corpuscular Hemoglobin Concent 32.3, Red Cell Distribution Width 14.8, Platelet Count 205, Mean Platelet Volume 6.1L, Neutrophils (%) (Auto) 68.8, Lymphocytes ( %) (Auto) 19.2L, Monocytes (%) (Auto) 9.5, Eosinophils (%) (Auto) 1.9, Basophils (%) (Auto) 0.6, Sodium Level 135L, Potassium Level 4.0, Chloride Level 93L, Carbon Dioxide Level 36H, Anion Gap 6, Blood Urea Nitrogen 41H, Creatinine 9.6H, Estimat Glomerular Filtration Rate 5.5, Glucose Level 112H, Uric Acid 4.6, Calcium Level 9.3, Phosphorus Level 3.4, Magnesium Level 2.3, Total Bilirubin 0.6, Aspartate Amino Transf (AST/SGOT) 8L, Alanine Aminotransferase (ALT/SGPT) 14, Alkaline Phosphatase 66, Troponin I 0.038, C- Reactive Protein, Quantitative 2.2H, Total Protein 7.9, Albumin 3.1L, Globulin 4.8, Albumin/Globulin Ratio 0.6L, Triglycerides Level 123, Cholesterol Level 82 , LDL Cholesterol 41, HDL Cholesterol 36L, Cholesterol/HDL Ratio 2.3L, Thyroid Stimulating Hormone (TSH) 0.636 Height (Feet): 5 Height (Inches): 11.00 Weight (Pounds): 177 General Appearance: no apparent distress, confused Cardiovascular: normal rate Respiratory/Chest: decreased breath sounds Abdomen: soft Objective no change PELON ESCALONA Oct 08, 2017 14:51
--- NOTE | 2017-10-08 15:39 | Infectious Diseases Prog Note ---
Assessment/Plan Problems: (1) Right foot infection Assessment & Plan: continue vancomycin with cefepime empiric coverage, MRI of the foot showed osteomyelitis of the fifth right toe , ESR is elevated (2) Foot osteomyelitis, right Assessment & Plan: in the right fifth toe with erosions on X ray , and underlying osteomyelitis, confirmed with MRI of the right foot, will treat with vancomycin and cefepime for 6 weeks with HD .follow up with chocolatier (3) ESRD (end stage renal disease) Assessment & Plan: on HD renal is following (4) Diabetes Assessment & Plan: recommend tight glycemic control to keep blood glucose between 100-140 Subjective ROS Limited/Unobtainable: Yes Allergies: Coded Allergies: PENICILLINS (Verified Allergy, Unknown, 10/06/17) Subjective he was up in bed, comfortable, denied any pain, not in distress, afebrile Objective Vital Signs Last 24 Hour Vital Signs Date Time Temp Pulse Resp B/P (MAP) Pulse Ox O2 Delivery O2 Flow Rate FiO2 10/08/17 12:00 97.9 70 20 134/78 99 Room Air 97.9 10/08/17 09:28 70 127/81 10/08/17 09:28 70 127/81 10/08/17 08:30 98.2 65 18 132/83 98 Room Air 98.2 10/08/17 08:00 98.4 70 20 127/81 99 Room Air 98.4 10/08/17 07:30 98.2 68 20 129/80 99 Room Air 98.2 10/08/17 04:00 98.0 65 19 148/80 97 Room Air 98.0 10/08/17 00:00 98.6 66 18 148/85 98 Room Air 98.6 10/07/17 21:39 99 149/83 10/07/17 19:15 Room Air 10/07/17 19:15 98.5 65 20 145/73 Room Air 98.5 10/07/17 16:00 98.1 65 20 174/88 99 98.1 Height (Feet): 5 Height (Inches): 11.00 Weight (Pounds): 177 General Appearance: WD/WN, no acute distress HEENT: normocephalic, atraumatic, anicteric, mucous membranes moist, PERRL Respiratory/Chest: chest wall non-tender, lungs clear, normal breath sounds, no respiratory distress, no accessory muscle use Cardiovascular: normal peripheral pulses, normal rate, regular rhythm, no gallop/murmur, no JVD Abdomen: normal bowel sounds, soft, non tender, no organomegaly, non distended , no mass, no scars Extremities: no cyanosis, no clubbing, other - right fifth toe redness and swelling Skin: no rash, no lesions, no ulcers Neurologic/Psychiatric: alert, responsive Laboratory Tests Test 10/08/17 05:50 White Blood Count 6.0 K/UL (4.8-10.8) Red Blood Count 3.59 M/UL (4.70-6.10) L Hemoglobin 10.2 G/DL (14.2-18.0) L Hematocrit 31.7 % (42.0-52.0) L Mean Corpuscular Volume 88 FL (80-99) Mean Corpuscular Hemoglobin 28.5 PG (27.0-31.0) Mean Corpuscular Hemoglobin Concent 32.3 G/DL (32.0-36.0) Red Cell Distribution Width 14.8 % (11.6-14.8) Platelet Count 205 K/UL (150-450) Mean Platelet Volume 6.1 FL (6.5-10.1) L Neutrophils (%) (Auto) 68.8 % (45.0-75.0) Lymphocytes (%) (Auto) 19.2 % (20.0-45.0) L Monocytes (%) (Auto) 9.5 % (1.0-10.0) Eosinophils (%) (Auto) 1.9 % (0.0-3.0) Basophils (%) (Auto) 0.6 % (0.0-2.0) Sodium Level 135 MMOL/L (136-145) L Potassium Level 4.0 MMOL/L (3.5-5.1) Chloride Level 93 MMOL/L (98-107) L Carbon Dioxide Level 36 MMOL/L (21-32) H Anion Gap 6 mmol/L (5-15) Blood Urea Nitrogen 41 mg/dL (7-18) H Creatinine 9.6 MG/DL (0.55-1.30) H Estimat Glomerular Filtration Rate 5.5 mL/min (>60) Glucose Level 112 MG/DL (74-106) H Uric Acid 4.6 MG/DL (2.6-7.2) Calcium Level 9.3 MG/DL (8.5-10.1) Phosphorus Level 3.4 MG/DL (2.5-4.9) Magnesium Level 2.3 MG/DL (1.8-2.4) Total Bilirubin 0.6 MG/DL (0.2-1.0) Aspartate Amino Transf (AST/SGOT) 8 U/L (15-37) L Alanine Aminotransferase (ALT/SGPT) 14 U/L (12-78) Alkaline Phosphatase 66 U/L (46-116) Troponin I 0.038 ng/mL (0.000-0.056) C-Reactive Protein, Quantitative 2.2 mg/dL (0.00-0.90) H Total Protein 7.9 G/DL (6.4-8.2) Albumin 3.1 G/DL (3.4-5.0) L Globulin 4.8 g/dL Albumin/Globulin Ratio 0.6 (1.0-2.7) L Triglycerides Level 123 MG/DL (30-150) Cholesterol Level 82 MG/DL (< 200) LDL Cholesterol 41 mg/dL (<100) HDL Cholesterol 36 MG/DL (40-60) L Cholesterol/HDL Ratio 2.3 (3.3-4.4) L Thyroid Stimulating Hormone (TSH) 0.636 uiU/mL (0.358-3.740) Current Medications Medications (Trade) Dose Ordered Sig/Jose Route PRN Reason Start Time Stop Time Status Last Admin Dose Admin Acetaminophen (Tylenol) 500 mg Q8H PRN ORAL Prn Headache/Temp > 101 10/07/17 00:00 11/06/17 00:00 Amlodipine Besylate (Norvasc) 10 mg DAILY ORAL 10/07/17 09:00 11/06/17 08:59 10/08/17 09:28 Atorvastatin Calcium (Lipitor) 40 mg BEDTIME ORAL 10/07/17 00:27 11/06/17 00:26 10/07/17 21:40 Calcium Acetate (Phoslo) 667 mg TID ORAL 10/07/17 09:00 11/06/17 08:59 10/08/17 09:28 Carvedilol (Coreg) 25 mg EVERY 12 HOURS ORAL 6/28/18 00:28 11/06/17 00:27 10/08/17 09:28 Cefepime HCl 1 gm/ Dextrose 110 ml @ 220 mls/hr Q24H IVPB 10/08/17 14:00 10/15/17 13:59 Clonidine HCl (Catapres Tab) 0.1 mg Q4H PRN ORAL bp over 160 syst 10/07/17 10:15 11/06/17 10:14 Dextrose (Dextrose 50%) 25 ml STAT PRN IV Hypoglycemia 10/07/17 00:00 11/06/17 00:00 Dextrose (Dextrose 50%) 50 ml STAT PRN IV Hypoglycemia 10/07/17 00:00 11/06/17 00:00 Diphenhydramine HCl (Benadryl) 25 mg EVERY 12 HOURS PRN ORAL Itching 10/07/17 00:00 11/06/17 00:00 Diphenoxylate HCl/ Atropine (Lomotil) 2.5 mg Q8HR PRN ORAL Diarrhea 10/07/17 00:00 11/06/17 00:00 Folic Acid (Folate) 1 mg DAILY ORAL 10/07/17 09:00 11/06/17 08:59 10/08/17 09:28 Heparin Sodium (Porcine) (Heparin 5000 units/ml) 5,000 units EVERY 12 HOURS SUBQ 10/07/17 00:33 11/06/17 00:32 10/07/17 00:42 Insulin Aspart (NovoLOG) BEFORE MEALS AND HS SUBQ 10/07/17 06:30 11/06/17 06:29 10/07/17 12:24 Insulin Detemir (Levemir) 10 units BEDTIME SUBQ 10/07/17 21:00 11/06/17 20:59 Pantoprazole (Protonix) 40 mg DAILY ORAL 10/07/17 09:00 11/06/17 08:59 10/08/17 09:28 Vancomycin HCl (Vanco rx to dose) 1 ea DAILY PRN MISC Per rx protocol 10/07/17 12:15 11/06/17 12:14 Lorri Lim M.D. Oct 08, 2017 15:39
--- NOTE | 2017-10-08 20:45 | Consultation ---
History of Present Illness General Date patient seen: Oct 08, 2017 Reason for Consultation: perineal tumor Present Illness HPI 66 year old male with multiple medical comorbidities who is a poor historian was noted to have abnormal mass around perineum. Patient complaining of bilateral foot pain and lower extremity edema / discomfort. During admission was noted by staff to have abnormal growth around perineum. when asked patient unsure of what mass is or how long he has had it. denies history or knowledge of mass. noted to have extensive surgical scars around hips, waste, scrotum with skin grafts. he cannot recall when surgery was or what it was for. surgery called to evaluate for mass. patient seen, chart reviewed, patient examined. Allergies: Coded Allergies: PENICILLINS (Verified Allergy, Unknown, 10/06/17) Medication History Scheduled Amlodipine Besylate* (Amlodipine Besylate*), 10 MG ORAL DAILY, (Reported) Atorvastatin Calcium* (Atorvastatin Calcium*), 40 MG ORAL BEDTIME, (Reported) Benazepril Hcl* (Benazepril Hcl*), 20 MG ORAL DAILY, (Reported) Calcium Acetate (Calcium Acetate), 667 MG PO TID, (Reported) Carvedilol* (Carvedilol*), 25 MG ORAL EVERY 12 HOURS, (Reported) Folic Acid* (Folic Acid*), 1 MG ORAL DAILY, (Reported) [Basaglar Kwikpen], 20 UNITS INJ HS, (Reported) Scheduled PRN Acetaminophen* (Tylenol Extra Strength*), 500 MG ORAL Q8H PRN for Prn Headache/ Temp > 101 Diphenoxylate Hcl/Atropine (Diphenoxylate-Atropine Tablet), 1 EACH PO Q8HR PRN for Diarrhea, (Reported) Miscellaneous Medications Insulin Detemir (Levemir Flexpen), 20 UNITS SUBQ, (Reported) Patient History Limited by: other History Provided By: Patient, Medical Record, PMD Healthcare decision maker Resuscitation status Full Code Advanced Directive on File No Past Medical/Surgical History Past Medical/Surgical History: (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 (2) Toe deformity, acquired (3) Muscular pain (4) Diabetes (5) ESRD (end stage renal disease) (6) Foot osteomyelitis, right (7) Right foot infection (8) Hypertensive kidney disease Review of Systems All Other Systems: negative except mentioned in HPI Physical Exam General Appearance: no apparent distress Lines, tubes and drains: peripheral HEENT: atraumatic, mucous membranes moist Neck: normal inspection Respiratory/Chest: normal breath sounds, no respiratory distress, no accessory muscle use Cardiovascular/Chest: normal rate Abdomen: normal bowel sounds, soft, no organomegaly, no mass Genitourinary/Rectal: other - abnormal soft tissue growth in perineum, large pedunculated, almost like "ground beef" Extremities: trace edema, other - see wound care photos Skin Exam: warm/dry Neurologic: alert, responsive Last 24 Hour Vital Signs Date Time Temp Pulse Resp B/P (MAP) Pulse Ox O2 Delivery O2 Flow Rate FiO2 10/08/17 16:00 97.8 70 20 118/71 97 97.8 10/08/17 16:00 Room Air 10/08/17 12:00 97.9 70 20 134/78 99 Room Air 97.9 10/08/17 09:28 70 127/81 10/08/17 09:28 70 127/81 10/08/17 08:30 98.2 65 18 132/83 98 Room Air 98.2 10/08/17 08:00 98.4 70 20 127/81 99 Room Air 98.4 10/08/17 07:30 98.2 68 20 129/80 99 Room Air 98.2 10/08/17 04:00 98.0 65 19 148/80 97 Room Air 98.0 10/08/17 00:00 98.6 66 18 148/85 98 Room Air 98.6 10/07/17 21:39 99 149/83 Intake and Output 10/07/17 10/08/17 19:00 07:00 Output Total 2000 ml Balance -2000 ml Output Hemodialysis UF 2000 ml # Voids 2 # Bowel Movements 1 Laboratory Tests Test 10/08/17 05:50 White Blood Count 6.0 K/UL (4.8-10.8) Red Blood Count 3.59 M/UL (4.70-6.10) L Hemoglobin 10.2 G/DL (14.2-18.0) L Hematocrit 31.7 % (42.0-52.0) L Mean Corpuscular Volume 88 FL (80-99) Mean Corpuscular Hemoglobin 28.5 PG (27.0-31.0) Mean Corpuscular Hemoglobin Concent 32.3 G/DL (32.0-36.0) Red Cell Distribution Width 14.8 % (11.6-14.8) Platelet Count 205 K/UL (150-450) Mean Platelet Volume 6.1 FL (6.5-10.1) L Neutrophils (%) (Auto) 68.8 % (45.0-75.0) Lymphocytes (%) (Auto) 19.2 % (20.0-45.0) L Monocytes (%) (Auto) 9.5 % (1.0-10.0) Eosinophils (%) (Auto) 1.9 % (0.0-3.0) Basophils (%) (Auto) 0.6 % (0.0-2.0) Sodium Level 135 MMOL/L (136-145) L Potassium Level 4.0 MMOL/L (3.5-5.1) Chloride Level 93 MMOL/L (98-107) L Carbon Dioxide Level 36 MMOL/L (21-32) H Anion Gap 6 mmol/L (5-15) Blood Urea Nitrogen 41 mg/dL (7-18) H Creatinine 9.6 MG/DL (0.55-1.30) H Estimat Glomerular Filtration Rate 5.5 mL/min (>60) Glucose Level 112 MG/DL (74-106) H Uric Acid 4.6 MG/DL (2.6-7.2) Calcium Level 9.3 MG/DL (8.5-10.1) Phosphorus Level 3.4 MG/DL (2.5-4.9) Magnesium Level 2.3 MG/DL (1.8-2.4) Total Bilirubin 0.6 MG/DL (0.2-1.0) Aspartate Amino Transf (AST/SGOT) 8 U/L (15-37) L Alanine Aminotransferase (ALT/SGPT) 14 U/L (12-78) Alkaline Phosphatase 66 U/L (46-116) Troponin I 0.038 ng/mL (0.000-0.056) C-Reactive Protein, Quantitative 2.2 mg/dL (0.00-0.90) H Total Protein 7.9 G/DL (6.4-8.2) Albumin 3.1 G/DL (3.4-5.0) L Globulin 4.8 g/dL Albumin/Globulin Ratio 0.6 (1.0-2.7) L Triglycerides Level 123 MG/DL (30-150) Cholesterol Level 82 MG/DL (< 200) LDL Cholesterol 41 mg/dL (<100) HDL Cholesterol 36 MG/DL (40-60) L Cholesterol/HDL Ratio 2.3 (3.3-4.4) L Thyroid Stimulating Hormone (TSH) 0.636 uiU/mL (0.358-3.740) Height (Feet): 5 Height (Inches): 11.00 Weight (Pounds): 177 Medications Current Medications Medications (Trade) Dose Ordered Sig/Jose Route PRN Reason Start Time Stop Time Status Last Admin Dose Admin Acetaminophen (Tylenol) 500 mg Q8H PRN ORAL Prn Headache/Temp > 101 10/07/17 00:00 11/06/17 00:00 Amlodipine Besylate (Norvasc) 10 mg DAILY ORAL 10/07/17 09:00 11/06/17 08:59 10/08/17 09:28 Atorvastatin Calcium (Lipitor) 40 mg BEDTIME ORAL 10/07/17 00:27 11/06/17 00:26 10/07/17 21:40 Calcium Acetate (Phoslo) 667 mg TID ORAL 10/07/17 09:00 11/06/17 08:59 10/08/17 17:04 Carvedilol (Coreg) 25 mg EVERY 12 HOURS ORAL 10/07/17 00:28 11/06/17 00:27 10/08/17 09:28 Cefepime HCl 2 gm/ Dextrose 110 ml @ 220 mls/hr EVERY OTHER DAY IVPB 10/10/17 09:00 10/17/17 08:59 Clonidine HCl (Catapres Tab) 0.1 mg Q4H PRN ORAL bp over 160 syst 10/07/17 10:15 11/06/17 10:14 Dextrose (Dextrose 50%) 25 ml STAT PRN IV Hypoglycemia 10/07/17 00:00 11/06/17 00:00 Dextrose (Dextrose 50%) 50 ml STAT PRN IV Hypoglycemia 10/07/17 00:00 11/06/17 00:00 Diphenhydramine HCl (Benadryl) 25 mg EVERY 12 HOURS PRN ORAL Itching 10/07/17 00:00 11/06/17 00:00 Diphenoxylate HCl/ Atropine (Lomotil) 2.5 mg Q8HR PRN ORAL Diarrhea 10/07/17 00:00 11/06/17 00:00 Folic Acid (Folate) 1 mg DAILY ORAL 10/07/17 09:00 11/06/17 08:59 10/08/17 09:28 Heparin Sodium (Porcine) (Heparin 5000 units/ml) 5,000 units EVERY 12 HOURS SUBQ 10/07/17 00:33 11/06/17 00:32 10/07/17 00:42 Insulin Aspart (NovoLOG) BEFORE MEALS AND HS SUBQ 10/07/17 06:30 11/06/17 06:29 10/08/17 17:00 Insulin Detemir (Levemir) 10 units BEDTIME SUBQ 10/07/17 21:00 11/06/17 20:59 Pantoprazole (Protonix) 40 mg DAILY ORAL 10/07/17 09:00 11/06/17 08:59 10/08/17 09:28 Vancomycin HCl (Vanco rx to dose) 1 ea DAILY PRN MISC Per rx protocol (500-750 g) 10/08/17 15:45 11/07/17 15:44 Assessment/Plan Problem List: (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 pedunculated "ground beef" growth. extensive surgical scars with skin grafts around waist, hips, perineum. unfortunately patient poor historian and unable to give details as to prior history. he is not aware of large mass. he is resident of care facility at this time. -very interesting case. needs further work up to identify etiology of tumor. -CT A/P -will plan for biopsy of mass soon -thank you for this consultation. will follow with recs. ICD Codes: N50.9 - Disorder of male genital organs, unspecified SNOMED: [id number] Agapito Porras Oct 08, 2017 20:45
[2017-10-08] MEDS: Atorvastatin 80mg tab ORAL SCH (21:09)
[2017-10-08] MEDS: Levemir Flexpen SUBQ SCH (21:19)
[2017-10-08] MEDS ORDERED: Levofloxacin 250mg/D5W 50ml IVPB SCH (22:00)
[2017-10-09] VITALS (8 sets, daily range): BP systolic 112–146; BP diastolic 63–88
[2017-10-09] MEDS: NovoLOG Insulin Flexpen SUBQ SCH ×4 (06:30→21:00)
[2017-10-09] MEDS: Calcium Acetate 667mg Tab ORAL SCH ×3 (08:58→18:31)
[2017-10-09] MEDS: Heparin 5000 units/ml inj SUBQ SCH ×2 (09:00→22:22)
[2017-10-09] MEDS: Carvedilol 25mg Tab ORAL SCH ×2 (09:00→22:24)
--- NOTE | 2017-10-09 09:52 | Diagnostic Imaging Report ---
INDICATION: 66-year-old with mass COMPARISON: None FINDINGS: Single frontal view demonstrates enlarged cardiomediastinal silhouette. Atherosclerotic vascular disease. The lungs are clear. No pleural effusions. The visualized osseous structures are within normal limits. IMPRESSION: Enlarged cardiomediastinal silhouette, correlation can be obtained with CT.
--- NOTE | 2017-10-09 11:48 | Nephrology Progress Note ---
Assessment/Plan Problem List: (1) ESRD (end stage renal disease) (2) Diabetes (3) Foot osteomyelitis, right (4) Hypertensive kidney disease Assessment ESRD (end stage renal disease) due HD today has left arm fistula Dementia HTN Right foot infection Diabetes Toe deformity, acquired Plan HD today BP management Subjective ROS Limited/Unobtainable: No Constitutional: Reports: malaise Objective Objective Last 24 Hour Vital Signs Date Time Temp Pulse Resp B/P (MAP) Pulse Ox O2 Delivery O2 Flow Rate FiO2 10/09/17 08:00 97.3 66 18 140/74 97 Room Air 97.3 10/09/17 04:00 97.9 64 19 130/85 99 Room Air 97.9 10/09/17 00:00 98.1 69 17 128/88 96 Room Air 98.1 10/08/17 21:09 72 147/78 10/08/17 20:00 98.8 72 20 147/78 99 Room Air 98.8 10/08/17 16:00 97.8 70 20 118/71 97 97.8 10/08/17 16:00 Room Air 10/08/17 12:00 97.9 70 20 134/78 99 Room Air 97.9 Intake and Output 10/08/17 10/09/17 19:00 07:00 Intake Total 500 ml Balance 500 ml Intake Oral 500 ml # Voids 3 2 # Bowel Movements 1 Height (Feet): 5 Height (Inches): 11.00 Weight (Pounds): 176 General Appearance: no apparent distress Cardiovascular: normal rate Respiratory/Chest: decreased breath sounds Abdomen: soft Objective no change PELON ESCALONA Oct 09, 2017 11:48
--- NOTE | 2017-10-09 12:49 | General Progress Note ---
Assessment/Plan Assessment/Plan S: I am ok O: appears in mild pain in right foot, poor historian PHYSICAL EXAMINATION: HEAD AND NECK: Atraumatic and normocephalic. CHEST: Clear to auscultation. HEART: S1 and S2. Regular rate and rhythm. ABDOMEN: Soft. No organomegaly. MUSCULOSKELETAL: Positive for the AV graft/shunt in the left upper extremity. Positive for chronic Charcot foot on right side. appropriately dressed. Mild tenderness. NEUROLOGY: The patient is awake, alert and oriented x2. Positive for decline in the cognition. Lack of memory. DERM: large exophytic soft tissue mass in perianal region Meds : Reviewed and reconciled. Including Vanco and cefepim ASSESSMENT AND PLAN: 1. Acute on Chronic right foot osteomyelitis. 2. Chronic Charcot feet (more on the right than the left). 3. Diabetes type 2. 4. End-stage renal disease, on hemodialysis. 5. Chronic anemia. 6. GI and DVT prophylaxis. 7. New large exophytic soft tissue mass in perianal region Plan: Notes from Surgeon reviewed Pending Abdominal CT imaging current IV antibiotic recement Subjective Allergies: Coded Allergies: PENICILLINS (Verified Allergy, Unknown, 10/06/17) Objective Last 24 Hour Vital Signs Date Time Temp Pulse Resp B/P (MAP) Pulse Ox O2 Delivery O2 Flow Rate FiO2 10/09/17 12:00 97.3 65 18 141/75 99 Room Air 97.3 10/09/17 08:00 97.3 66 18 140/74 97 Room Air 97.3 10/09/17 04:00 97.9 64 19 130/85 99 Room Air 97.9 10/09/17 00:00 98.1 69 17 128/88 96 Room Air 98.1 10/08/17 21:09 72 147/78 10/08/17 20:00 98.8 72 20 147/78 99 Room Air 98.8 10/08/17 16:00 97.8 70 20 118/71 97 97.8 10/08/17 16:00 Room Air Intake and Output 10/08/17 10/09/17 19:00 07:00 Intake Total 500 ml Balance 500 ml Intake Oral 500 ml # Voids 3 2 # Bowel Movements 1 Height (Feet): 5 Height (Inches): 11.00 Weight (Pounds): 176 Nadir Moise MD Oct 09, 2017 12:49
--- NOTE | 2017-10-09 13:18 | Diagnostic Imaging Report ---
EXAM: CT Abdomen and Pelvis Without Intravenous Contrast CLINICAL HISTORY: MASS TECHNIQUE: Axial computed tomography images of the abdomen and pelvis without intravenous contrast. CTDI is 0.15 + 16.58 mGy and DLP is 905 mGy-cm. One or more of the following dose reduction techniques were used: automated exposure control, adjustment of the mA and/or kV according to patient size, use of iterative reconstruction technique. COMPARISON: No relevant prior studies available. FINDINGS: Lung bases: Unremarkable. Heart: Cardiomegaly and small pericardial effusion. ABDOMEN: Liver: Unremarkable Gallbladder and bile ducts: Cholelithiasis. Pancreas: Unremarkable. Spleen: Unremarkable. Adrenals: Unremarkable. Kidneys and ureters: Atrophic kidneys with cysts and other low attenuation foci. No hydronephrosis. Stomach and bowel: No lizzeth mural thickening. Nonobstructive bowel gas pattern. PELVIS: Appendix: Appendix not identified. Bladder: Unremarkable. Reproductive: Large heterogeneous prostate with nodular component superiorly. Penile calcifications. ABDOMEN and PELVIS: Intraperitoneal space: Unremarkable. Bones/joints: Soft tissue thickening and edema in the left hip area. Correlate. Old rib fractures. Soft tissues: Fat filled left inguinal hernia. Incompletely imaged structure in overlying the left groin - thigh area. Vasculature: Unremarkable. No abdominal aortic aneurysm. Lymph nodes: No enlarged lymph nodes. IMPRESSION: 1. Cholelithiasis. 2. Atrophic kidneys with cysts and other low attenuation foci. No hydronephrosis. 3. Large heterogeneous prostate with nodular component superiorly.
--- NOTE | 2017-10-09 14:56 | General Surgery Progress Note ---
General Surgery-Progress Note Subjective Additional Comments no acute events. receiving HD today Objective Last 24 Hour Vital Signs Date Time Temp Pulse Resp B/P (MAP) Pulse Ox O2 Delivery O2 Flow Rate FiO2 10/09/17 12:00 97.3 65 18 141/75 99 Room Air 97.3 10/09/17 09:00 65 141/75 10/09/17 08:00 97.3 66 18 140/74 97 Room Air 97.3 10/09/17 04:00 97.9 64 19 130/85 99 Room Air 97.9 10/09/17 00:00 98.1 69 17 128/88 96 Room Air 98.1 10/08/17 21:09 72 147/78 10/08/17 20:00 98.8 72 20 147/78 99 Room Air 98.8 10/08/17 16:00 97.8 70 20 118/71 97 97.8 10/08/17 16:00 Room Air I&O Intake and Output 10/08/17 10/09/17 19:00 07:00 Intake Total 500 ml Balance 500 ml Intake Oral 500 ml # Voids 3 2 # Bowel Movements 1 Dressing: saturated Drains: none Cardiovascular: RSR Respiratory: clear Abdomen: soft, flat Extremities: edema, no tenderness Plan Problems: (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 pedunculated "ground beef" growth. extensive surgical scars with skin grafts around waist, hips, perineum. unfortunately patient poor historian and unable to give details as to prior history. he is not aware of large mass. he is resident of care facility at this time. CT reviewed and no acute process noted. did note prostate abnormality -very interesting case. needs further work up to identify etiology of tumor. -will plan for biopsy of mass Wednesday -thank you for this consultation. will follow with recs. Agapito Porras Oct 09, 2017 14:56
[2017-10-09] MEDS: Cefepime HCl 2 GM in D5W 110 ML IVPB SCH (16:56)
--- NOTE | 2017-10-09 17:09 | Infectious Diseases Prog Note ---
Assessment/Plan Problems: (1) Right foot infection Assessment & Plan: with underlying osteomyelitis of the fifth toe , continue vancomycin with cefepime empiric coverage, MRI of the foot showed osteomyelitis of the fifth right toe , ESR is elevated. 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 surgery was consulted Subjective ROS Limited/Unobtainable: Yes Allergies: Coded Allergies: PENICILLINS (Verified Allergy, Unknown, 10/06/17) Subjective he was up in bed, comfortable, denied any pain, not in distress, afebrile Objective Vital Signs Last 24 Hour Vital Signs Date Time Temp Pulse Resp B/P (MAP) Pulse Ox O2 Delivery O2 Flow Rate FiO2 10/09/17 16:00 97.7 66 18 141/66 96 Room Air 97.7 10/09/17 12:00 97.3 65 18 141/75 99 Room Air 97.3 10/09/17 09:00 65 141/75 10/09/17 08:00 97.3 66 18 140/74 97 Room Air 97.3 10/09/17 04:00 97.9 64 19 130/85 99 Room Air 97.9 10/09/17 00:00 98.1 69 17 128/88 96 Room Air 98.1 10/08/17 21:09 72 147/78 10/08/17 20:00 98.8 72 20 147/78 99 Room Air 98.8 Height (Feet): 5 Height (Inches): 11.00 Weight (Pounds): 176 General Appearance: WD/WN, no acute distress HEENT: normocephalic, atraumatic, anicteric, mucous membranes moist, PERRL Respiratory/Chest: chest wall non-tender, lungs clear, normal breath sounds, no respiratory distress, no accessory muscle use Breasts: no masses Cardiovascular: normal peripheral pulses, normal rate, regular rhythm, no gallop/murmur, no JVD Abdomen: normal bowel sounds, soft, non tender, no organomegaly, non distended , no mass, no scars Genitourinary: normal external genitalia Extremities: no cyanosis, no clubbing, other - right foot small toe redness and swelling Skin: lesions - perianal mass Neurologic/Psychiatric: alert, responsive Microbiology Date/Time Source Procedure Growth Status 10/07/17 12:36 Blood Blood Culture - Preliminary NO GROWTH AFTER 24 HOURS Resulted 10/07/17 12:26 Blood Blood Culture - Preliminary NO GROWTH AFTER 24 HOURS Resulted Current Medications Medications (Trade) Dose Ordered Sig/Jose Route PRN Reason Start Time Stop Time Status Last Admin Dose Admin Acetaminophen (Tylenol) 500 mg Q8H PRN ORAL Prn Headache/Temp > 101 10/07/17 00:00 11/06/17 00:00 Amlodipine Besylate (Norvasc) 10 mg DAILY ORAL 10/07/17 09:00 11/06/17 08:59 10/08/17 09:28 Atorvastatin Calcium (Lipitor) 40 mg BEDTIME ORAL 10/07/17 00:27 11/06/17 00:26 10/08/17 21:09 Calcium Acetate (Phoslo) 667 mg TID ORAL 10/07/17 09:00 11/06/17 08:59 10/09/17 13:54 Carvedilol (Coreg) 25 mg EVERY 12 HOURS ORAL 10/07/17 00:28 11/06/17 00:27 10/08/17 21:09 Cefepime HCl 2 gm/ Dextrose 110 ml @ 220 mls/hr EVERY OTHER DAY@1700 IVPB 10/09/17 17:00 10/16/17 16:59 10/09/17 16:56 Clonidine HCl (Catapres Tab) 0.1 mg Q4H PRN ORAL bp over 160 syst 10/07/17 10:15 11/06/17 10:14 Dextrose (Dextrose 50%) 25 ml STAT PRN IV Hypoglycemia 10/07/17 00:00 11/06/17 00:00 Dextrose (Dextrose 50%) 50 ml STAT PRN IV Hypoglycemia 10/07/17 00:00 11/06/17 00:00 Diphenhydramine HCl (Benadryl) 25 mg EVERY 12 HOURS PRN ORAL Itching 10/07/17 00:00 11/06/17 00:00 Diphenoxylate HCl/ Atropine (Lomotil) 2.5 mg Q8HR PRN ORAL Diarrhea 10/07/17 00:00 11/06/17 00:00 Folic Acid (Folate) 1 mg DAILY ORAL 10/07/17 09:00 11/06/17 08:59 10/09/17 08:58 Heparin Sodium (Porcine) (Heparin 5000 units/ml) 5,000 units EVERY 12 HOURS SUBQ 10/07/17 00:33 11/06/17 00:32 10/09/17 09:00 Insulin Aspart (NovoLOG) BEFORE MEALS AND HS SUBQ 10/07/17 06:30 11/06/17 06:29 10/09/17 12:16 Insulin Detemir (Levemir) 10 units BEDTIME SUBQ 10/07/17 21:00 11/06/17 20:59 10/08/17 21:19 Pantoprazole (Protonix) 40 mg DAILY ORAL 10/07/17 09:00 11/06/17 08:59 10/09/17 08:58 Vancomycin HCl (Vanco rx to dose) 1 ea DAILY PRN MISC Per rx protocol (500-750 g) 10/08/17 15:45 11/07/17 15:44 Vancomycin HCl/ Dextrose 250 ml @ 166.667 mls/hr ONCE ONCE IVPB 10/09/17 17:30 10/09/17 18:59 Lorri Lim M.D. Oct 09, 2017 17:09
[2017-10-09] MEDS ORDERED: Vancomycin 1250mg/D5W 250ml IVPB ONE (17:30)
[2017-10-09] MEDS: Atorvastatin 80mg tab ORAL SCH (22:23)
[2017-10-09] MEDS: Levemir Flexpen SUBQ SCH (22:23)
[2017-10-10] VITALS: BP 122/74
[2017-10-10 04:00] VITALS: BP 128/70
[2017-10-10] MEDS: NovoLOG Insulin Flexpen SUBQ SCH ×4 (07:00→21:29)
[2017-10-10 08:15] VITALS: BP 145/64
[2017-10-10] MEDS: Calcium Acetate 667mg Tab ORAL SCH ×3 (08:35→17:37)
[2017-10-10] MEDS: Carvedilol 25mg Tab ORAL SCH ×2 (08:36→21:23)
[2017-10-10] MEDS: Heparin 5000 units/ml inj SUBQ SCH ×2 (08:36→21:30)
[2017-10-10] MEDS ORDERED: Cefepime HCl 2 GM in D5W 110 ML IVPB SCH (09:00)
[2017-10-10 12:00] VITALS: BP 147/76
--- NOTE | 2017-10-10 12:52 | Nephrology Progress Note ---
Assessment/Plan Problem List: (1) ESRD (end stage renal disease) (2) Diabetes (3) Foot osteomyelitis, right (4) Hypertensive kidney disease Assessment ESRD (end stage renal disease) due HD today has left arm fistula Dementia HTN Right foot infection Diabetes Toe deformity, acquired Plan HD next 10/12 BP management Subjective ROS Limited/Unobtainable: No Constitutional: Reports: malaise Objective Objective Last 24 Hour Vital Signs Date Time Temp Pulse Resp B/P (MAP) Pulse Ox O2 Delivery O2 Flow Rate FiO2 10/10/17 12:00 97.3 68 18 147/76 95 Room Air 97.3 10/10/17 08:36 72 145/64 10/10/17 08:36 72 145/64 10/10/17 08:15 97.7 72 18 145/64 97 Room Air 97.7 10/10/17 04:00 97.9 70 18 128/70 97 Room Air 97.9 10/10/17 00:00 97.0 80 20 122/74 98 Room Air 97.0 10/09/17 22:24 78 121/67 10/09/17 20:00 97.7 79 17 112/63 95 Room Air 97.7 10/09/17 18:45 97.5 76 16 118/64 Room Air 97.5 10/09/17 18:45 Room Air 10/09/17 16:00 97.7 66 18 141/66 96 Room Air 97.7 10/09/17 14:45 97.8 66 16 146/84 Room Air 97.8 10/09/17 14:45 Room Air Intake and Output 10/09/17 10/10/17 19:00 07:00 Intake Total 720 ml 480 ml Output Total 2075 ml Balance -1355 ml 480 ml Intake Oral 720 ml 480 ml Output Hemodialysis UF 2075 ml Height (Feet): 5 Height (Inches): 11.00 Weight (Pounds): 176 General Appearance: no apparent distress Objective no change PELON ESCALONA Oct 10, 2017 12:52
--- NOTE | 2017-10-10 13:57 | General Surgery Progress Note ---
General Surgery-Progress Note Subjective Additional Comments no acute events. Objective Last 24 Hour Vital Signs Date Time Temp Pulse Resp B/P (MAP) Pulse Ox O2 Delivery O2 Flow Rate FiO2 10/10/17 12:00 97.3 68 18 147/76 95 Room Air 97.3 10/10/17 08:36 72 145/64 10/10/17 08:36 72 145/64 10/10/17 08:15 97.7 72 18 145/64 97 Room Air 97.7 10/10/17 04:00 97.9 70 18 128/70 97 Room Air 97.9 10/10/17 00:00 97.0 80 20 122/74 98 Room Air 97.0 10/09/17 22:24 78 121/67 10/09/17 20:00 97.7 79 17 112/63 95 Room Air 97.7 10/09/17 18:45 97.5 76 16 118/64 Room Air 97.5 10/09/17 18:45 Room Air 10/09/17 16:00 97.7 66 18 141/66 96 Room Air 97.7 10/09/17 14:45 97.8 66 16 146/84 Room Air 97.8 10/09/17 14:45 Room Air I&O Intake and Output 10/09/17 10/10/17 19:00 07:00 Intake Total 720 ml 480 ml Output Total 2075 ml Balance -1355 ml 480 ml Intake Oral 720 ml 480 ml Output Hemodialysis UF 2075 ml Dressing: saturated Drains: none Cardiovascular: RSR Respiratory: clear Abdomen: soft, non-tender, present bowel sounds Extremities: no cyanosis Plan Problems: (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 pedunculated "ground beef" growth. extensive surgical scars with skin grafts around waist, hips, perineum. unfortunately patient poor historian and unable to give details as to prior history. he is not aware of large mass. he is resident of care facility at this time. CT reviewed and no acute process noted. did note prostate abnormality -very interesting case. needs further work up to identify etiology of tumor. -will plan for biopsy of mass Wednesday -thank you for this consultation. will follow with recs. Agapito Porras Oct 10, 2017 13:57
--- NOTE | 2017-10-10 14:19 | Infectious Diseases Prog Note ---
Assessment/Plan Problems: (1) Right foot infection Assessment & Plan: with underlying osteomyelitis of the fifth toe , continue vancomycin with cefepime empiric coverage, MRI of the foot showed osteomyelitis of the fifth right toe , ESR is elevated. (2) Foot osteomyelitis, right Assessment & Plan: in the right fifth toe with erosions on X ray , and underlying osteomyelitis, confirmed with MRI of the right foot, will treat with vancomycin and cefepime for 6 weeks with HD .follow up with bladder blower (3) ESRD (end stage renal disease) Assessment & Plan: on HD renal is following (4) Diabetes Assessment & Plan: recommend tight glycemic control to keep blood glucose between 100-140 (5) Perineal mass in male Assessment & Plan: rule out condyloma ( priya VS Buschke Vicky VS anogenital warts) will order RPR to rule out syphilis as an etiology , and HIV screening . surgery was consulted Subjective Constitutional: Reports: no symptoms HEENT: Reports: no symptoms Respiratory: Reports: no symptoms Breasts: Reports: no symptoms Cardiovascular: Reports: no symptoms Gastrointestinal/Abdominal: Reports: no symptoms Genitourinary: Reports: no symptoms Neurologic: Reports: no symptoms Psychiatric: Reports: no symptoms Skin: Reports: no symptoms Endocrine: Reports: no symptoms Hematologic: Reports: no symptoms Musculoskeletal: Reports: no symptoms Allergies: Coded Allergies: PENICILLINS (Verified Allergy, Unknown, 10/06/17) Subjective he was up in bed, comfortable, denied any pain, not in distress, afebrile Objective Vital Signs Last 24 Hour Vital Signs Date Time Temp Pulse Resp B/P (MAP) Pulse Ox O2 Delivery O2 Flow Rate FiO2 10/10/17 12:00 97.3 68 18 147/76 95 Room Air 97.3 10/10/17 08:36 72 145/64 10/10/17 08:36 72 145/64 10/10/17 08:15 97.7 72 18 145/64 97 Room Air 97.7 10/10/17 04:00 97.9 70 18 128/70 97 Room Air 97.9 10/10/17 00:00 97.0 80 20 122/74 98 Room Air 97.0 10/09/17 22:24 78 121/67 10/09/17 20:00 97.7 79 17 112/63 95 Room Air 97.7 6/30/18 18:45 97.5 76 16 118/64 Room Air 97.5 10/09/17 18:45 Room Air 10/09/17 16:00 97.7 66 18 141/66 96 Room Air 97.7 10/09/17 14:45 97.8 66 16 146/84 Room Air 97.8 10/09/17 14:45 Room Air Height (Feet): 5 Height (Inches): 11.00 Weight (Pounds): 176 General Appearance: WD/WN, no acute distress HEENT: normocephalic, atraumatic, anicteric, mucous membranes moist, PERRL, EOMI, pharynx normal Respiratory/Chest: chest wall non-tender, lungs clear, normal breath sounds, no respiratory distress, no accessory muscle use Cardiovascular: normal peripheral pulses, normal rate, regular rhythm, no gallop/murmur, no JVD Abdomen: normal bowel sounds, soft, non tender, no organomegaly, non distended , no mass, no scars Extremities: no cyanosis, no clubbing Skin: no rash, no lesions, no ulcers Neurologic/Psychiatric: alert, responsive Lymphatic: no neck adenopathy, no groin adenopathy Current Medications Medications (Trade) Dose Ordered Sig/Jose Route PRN Reason Start Time Stop Time Status Last Admin Dose Admin Acetaminophen (Tylenol) 500 mg Q8H PRN ORAL Prn Headache/Temp > 101 10/07/17 00:00 11/06/17 00:00 Amlodipine Besylate (Norvasc) 10 mg DAILY ORAL 10/07/17 09:00 11/06/17 08:59 10/10/17 08:36 Atorvastatin Calcium (Lipitor) 40 mg BEDTIME ORAL 10/07/17 00:27 11/06/17 00:26 10/09/17 22:23 Calcium Acetate (Phoslo) 667 mg TID ORAL 10/07/17 09:00 11/06/17 08:59 10/10/17 08:35 Carvedilol (Coreg) 25 mg EVERY 12 HOURS ORAL 10/07/17 00:28 11/06/17 00:27 10/10/17 08:36 Cefepime HCl 2 gm/ Dextrose 110 ml @ 220 mls/hr EVERY OTHER DAY@1700 IVPB 10/09/17 17:00 7/7/18 16:59 10/09/17 16:56 Clonidine HCl (Catapres Tab) 0.1 mg Q4H PRN ORAL bp over 160 syst 10/07/17 10:15 11/06/17 10:14 Dextrose (Dextrose 50%) 25 ml STAT PRN IV Hypoglycemia 10/07/17 00:00 11/06/17 00:00 Dextrose (Dextrose 50%) 50 ml STAT PRN IV Hypoglycemia 10/07/17 00:00 11/06/17 00:00 Diphenhydramine HCl (Benadryl) 25 mg EVERY 12 HOURS PRN ORAL Itching 10/07/17 00:00 11/06/17 00:00 Diphenoxylate HCl/ Atropine (Lomotil) 2.5 mg Q8HR PRN ORAL Diarrhea 10/07/17 00:00 11/06/17 00:00 Folic Acid (Folate) 1 mg DAILY ORAL 10/07/17 09:00 11/06/17 08:59 10/10/17 08:35 Heparin Sodium (Porcine) (Heparin 5000 units/ml) 5,000 units EVERY 12 HOURS SUBQ 10/07/17 00:33 11/06/17 00:32 10/10/17 08:36 Insulin Aspart (NovoLOG) BEFORE MEALS AND HS SUBQ 10/07/17 06:30 11/06/17 06:29 10/10/17 11:46 Insulin Detemir (Levemir) 10 units BEDTIME SUBQ 10/07/17 21:00 11/06/17 20:59 10/09/17 22:23 Pantoprazole (Protonix) 40 mg DAILY ORAL 10/07/17 09:00 11/06/17 08:59 10/10/17 08:35 Vancomycin HCl (Vanco rx to dose) 1 ea DAILY PRN MISC Per rx protocol (500-750 g) 10/08/17 15:45 11/07/17 15:44 Lorri Lim M.D. Oct 10, 2017 14:19
[2017-10-10 16:02] VITALS: BP 151/71
[2017-10-10 20:00] VITALS: BP 131/72
[2017-10-10] MEDS: Atorvastatin 80mg tab ORAL SCH (21:23)
[2017-10-10] MEDS: Levemir Flexpen SUBQ SCH (21:28)
[2017-10-11 00:04] VITALS: BP 142/79
[2017-10-11 04:00] VITALS: BP 145/76
[2017-10-11] MEDS: NovoLOG Insulin Flexpen SUBQ SCH ×4 (06:35→21:52)
[2017-10-11 08:16] VITALS: BP 154/72
[2017-10-11] MEDS: Calcium Acetate 667mg Tab ORAL SCH ×3 (09:32→18:00)
[2017-10-11] MEDS: Carvedilol 25mg Tab ORAL SCH ×2 (09:32→21:47)
[2017-10-11] MEDS: Heparin 5000 units/ml inj SUBQ SCH ×2 (09:33→21:50)
--- NOTE | 2017-10-11 10:00 | General Progress Note ---
Assessment/Plan Assessment/Plan S: I am ok O: appears in mild pain in right foot, poor historian PHYSICAL EXAMINATION: HEAD AND NECK: Atraumatic and normocephalic. CHEST: Clear to auscultation. HEART: S1 and S2. Regular rate and rhythm. ABDOMEN: Soft. No organomegaly. MUSCULOSKELETAL: Positive for the AV graft/shunt in the left upper extremity. Positive for chronic Charcot foot on right side. appropriately dressed. Mild tenderness. NEUROLOGY: The patient is awake, alert and oriented x2. Positive for decline in the cognition. Lack of memory. DERM: large exophytic soft tissue mass in perianal region Meds : Reviewed and reconciled. Including Vanco and cefepim ASSESSMENT AND PLAN: 1. Acute on Chronic right foot osteomyelitis. 2. Chronic Charcot feet (more on the right than the left). 3. Diabetes type 2. 4. End-stage renal disease, on hemodialysis. 5. Chronic anemia. 6. GI and DVT prophylaxis. 7. New large exophytic soft tissue mass in perianal region Plan: Will followup the Path report as an outpatient No Acute pathology finding Will followup as o/p with treatment per ID Rec. Subjective Allergies: Coded Allergies: PENICILLINS (Verified Allergy, Unknown, 10/06/17) Objective Last 24 Hour Vital Signs Date Time Temp Pulse Resp B/P (MAP) Pulse Ox O2 Delivery O2 Flow Rate FiO2 10/11/17 09:32 67 154/72 10/11/17 09:32 67 154/72 10/11/17 08:16 98.3 67 18 154/72 97 Room Air 98.3 10/11/17 04:00 98.3 69 18 145/76 100 Room Air 98.3 10/11/17 00:04 98.4 72 20 142/79 99 Room Air 98.4 10/10/17 21:23 68 131/72 10/10/17 20:00 98.4 68 19 131/72 97 Room Air 98.4 10/10/17 16:02 97.0 67 18 151/71 97 Room Air 97.0 10/10/17 12:00 97.3 68 18 147/76 95 Room Air 97.3 Intake and Output 10/10/17 10/11/17 19:00 07:00 Intake Total 840 ml 480 ml Balance 840 ml 480 ml Intake Oral 840 ml 480 ml # Bowel Movements 1 Laboratory Tests 10/10/17 15:26: Rapid Plasma Reagin [Pending], HIV (1&2) Antibody Rapid Negative 10/11/17 07:14: Random Vancomycin Level 8.8 Height (Feet): 5 Height (Inches): 11.00 Weight (Pounds): 182 Nadir Moise MD Oct 11, 2017 10:00
--- NOTE | 2017-10-11 10:08 | Diagnostic Imaging Report ---
APPROVED REPORT CPT Code: 90149 Present Symptoms Comments: Hx of HD and HTN R/O DVT BILATERAL: Imaging reveals a patent deep venous system bilaterally. There is no evidence of thrombus within the femoral, popliteal or tibial segments. The greater saphenous veins are also within normal limits. Doppler indicates normal spontaneous flow within these segments.
[2017-10-11 11:42] VITALS: BP 139/73
--- NOTE | 2017-10-11 12:13 | General Surgery Progress Note ---
General Surgery-Progress Note Subjective Additional Comments no acute events. doing well. Objective Last 24 Hour Vital Signs Date Time Temp Pulse Resp B/P (MAP) Pulse Ox O2 Delivery O2 Flow Rate FiO2 10/11/17 11:42 97.7 67 18 139/73 98 Room Air 97.7 10/11/17 09:32 67 154/72 10/11/17 09:32 67 154/72 10/11/17 08:16 98.3 67 18 154/72 97 Room Air 98.3 10/11/17 04:00 98.3 69 18 145/76 100 Room Air 98.3 10/11/17 00:04 98.4 72 20 142/79 99 Room Air 98.4 10/10/17 21:23 68 131/72 10/10/17 20:00 98.4 68 19 131/72 97 Room Air 98.4 10/10/17 16:02 97.0 67 18 151/71 97 Room Air 97.0 I&O Intake and Output 10/10/17 10/11/17 19:00 07:00 Intake Total 840 ml 480 ml Balance 840 ml 480 ml Intake Oral 840 ml 480 ml # Bowel Movements 1 Dressing: saturated Wound: other - see photos Drains: none Cardiovascular: RSR Respiratory: clear Abdomen: soft, non-tender, present bowel sounds Laboratory Tests Test 10/10/17 15:26 10/11/17 07:14 Rapid Plasma Reagin Pending HIV (1&2) Antibody Rapid Negative (NEGATIVE) Random Vancomycin Level 8.8 ug/mL Plan Problems: (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 pedunculated "ground beef" growth. extensive surgical scars with skin grafts around waist, hips, perineum. unfortunately patient poor historian and unable to give details as to prior history. he is not aware of large mass. he is resident of care facility at this time. CT reviewed and no acute process noted. did note prostate abnormality. very interesting case. needs further work up to identify etiology of tumor. -biopsy today -thank you for this consultation. will follow with recs. Procedure: consent obtained from patient at bedside after discussing risks and benefits and surgical plans. large friable mass in perineal area identified. at apex of mass tissue slothing off almost. with surgical scissors a portion of the apex of mass was excised for pathology. minimal oozing. no pain or discomfort as patient cannot feel or note mass. dressings applied. tumor sent to path for evaluation. -okay to d/c from surgical standpoint. -will await path results Agapito Porras Oct 11, 2017 12:13
--- NOTE | 2017-10-11 13:10 | Cardiology Report ---
APPROVED REPORT EXAM: Two-dimensional and M-mode echocardiogram with Doppler and color Doppler. INDICATION Congestive Heart Failure M-Mode DIMENSIONS IVSd1.7 (0.7-1.1cm)Left Atrium (MM)4.4 (1.6-4.0cm) LVDd3.2 (3.5-5.6cm)Aortic Root3.6 (2.0-3.7cm) PWd1.9 (0.7-1.1cm)Aortic Cusp Exc.1.9 (1.5-2.0cm) IVSs2.2 cm LVDs2.3 (2.5-4.0cm) PWs1.9 cm Normal left ventricular chamber size, systolic function and wall motion . Left ventricular ejection fraction estimated to be 65-70 %. Mild left ventricular hypertrophy by 2-D. Small posterior pericardial effusion. All other cardiac chamber sizes are within normal limits. Focal aortic valve sclerosis with adequate cusp excursion. Thickened mitral valve leaflets with normal excursion. Mitral annulus and aortic root calcification. Pulmonic valve not well visualized. Normal tricuspid valve structure. IVC at normal size with physiologic collapse. A color flow and spectral Doppler study was performed and revealed: Moderate aortic regurgitation. Trace mitral regurgitation. Mitral diastolic velocities suggest reduced left ventricular relaxation c/w mild LV diastolic dysfunction (Grade I ). Trace tricuspid regurgitation. Tricuspid systolic velocities suggests peak right ventricular systolic pressure of 23 mmHg. Trace Pulmonic regurgitation present
--- NOTE | 2017-10-11 13:27 | Nephrology Progress Note ---
Assessment/Plan Problem List: (1) ESRD (end stage renal disease) (2) Diabetes (3) Foot osteomyelitis, right (4) Hypertensive kidney disease Assessment ESRD (end stage renal disease) due HD today has left arm fistula Dementia HTN Right foot infection Diabetes Toe deformity, acquired Plan HD next 10/12 BP management Subjective ROS Limited/Unobtainable: No Constitutional: Reports: malaise Objective Objective Last 24 Hour Vital Signs Date Time Temp Pulse Resp B/P (MAP) Pulse Ox O2 Delivery O2 Flow Rate FiO2 10/11/17 11:42 97.7 67 18 139/73 98 Room Air 97.7 10/11/17 09:32 67 154/72 10/11/17 09:32 67 154/72 10/11/17 08:16 98.3 67 18 154/72 97 Room Air 98.3 10/11/17 04:00 98.3 69 18 145/76 100 Room Air 98.3 10/11/17 00:04 98.4 72 20 142/79 99 Room Air 98.4 10/10/17 21:23 68 131/72 10/10/17 20:00 98.4 68 19 131/72 97 Room Air 98.4 10/10/17 16:02 97.0 67 18 151/71 97 Room Air 97.0 Intake and Output 10/10/17 10/11/17 19:00 07:00 Intake Total 840 ml 480 ml Balance 840 ml 480 ml Intake Oral 840 ml 480 ml # Bowel Movements 1 Current Medications Medications (Trade) Dose Ordered Sig/Jose Route PRN Reason Start Time Stop Time Status Last Admin Dose Admin Acetaminophen (Tylenol) 500 mg Q8H PRN ORAL Prn Headache/Temp > 101 10/07/17 00:00 11/06/17 00:00 Amlodipine Besylate (Norvasc) 10 mg DAILY ORAL 10/07/17 09:00 11/06/17 08:59 10/11/17 09:32 Atorvastatin Calcium (Lipitor) 40 mg BEDTIME ORAL 10/07/17 00:27 11/06/17 00:26 10/10/17 21:23 Calcium Acetate (Phoslo) 667 mg TID ORAL 10/07/17 09:00 11/06/17 08:59 10/11/17 09:32 Carvedilol (Coreg) 25 mg EVERY 12 HOURS ORAL 10/07/17 00:28 11/06/17 00:27 10/11/17 09:32 Cefepime HCl 2 gm/ Dextrose 110 ml @ 220 mls/hr EVERY OTHER DAY@1700 IVPB 10/09/17 17:00 10/16/17 16:59 10/09/17 16:56 Clonidine HCl (Catapres Tab) 0.1 mg Q4H PRN ORAL bp over 160 syst 10/07/17 10:15 11/06/17 10:14 Dextrose (Dextrose 50%) 25 ml STAT PRN IV Hypoglycemia 10/07/17 00:00 11/06/17 00:00 Dextrose (Dextrose 50%) 50 ml STAT PRN IV Hypoglycemia 10/07/17 00:00 11/06/17 00:00 Diphenhydramine HCl (Benadryl) 25 mg EVERY 12 HOURS PRN ORAL Itching 10/07/17 00:00 11/06/17 00:00 Diphenoxylate HCl/ Atropine (Lomotil) 2.5 mg Q8HR PRN ORAL Diarrhea 10/07/17 00:00 11/06/17 00:00 Folic Acid (Folate) 1 mg DAILY ORAL 10/07/17 09:00 11/06/17 08:59 10/11/17 09:32 Heparin Sodium (Porcine) (Heparin 5000 units/ml) 5,000 units EVERY 12 HOURS SUBQ 10/07/17 00:33 11/06/17 00:32 10/11/17 09:33 Insulin Aspart (NovoLOG) BEFORE MEALS AND HS SUBQ 10/07/17 06:30 11/06/17 06:29 10/11/17 06:35 Insulin Detemir (Levemir) 10 units BEDTIME SUBQ 10/07/17 21:00 11/06/17 20:59 10/10/17 21:28 Pantoprazole (Protonix) 40 mg DAILY ORAL 10/07/17 09:00 11/06/17 08:59 10/11/17 09:32 Vancomycin HCl (Vanco rx to dose) 1 ea DAILY PRN MISC Per rx protocol (500-750 g) 10/08/17 15:45 11/07/17 15:44 Laboratory Tests 10/10/17 15:26: Rapid Plasma Reagin [Pending], HIV (1&2) Antibody Rapid Negative 10/11/17 07:14: Random Vancomycin Level 8.8 Height (Feet): 5 Height (Inches): 11.00 Weight (Pounds): 182 General Appearance: no apparent distress Cardiovascular: normal rate Respiratory/Chest: decreased breath sounds Abdomen: distended Objective no change PELON ESCALONA Oct 11, 2017 13:27
--- NOTE | 2017-10-11 13:59 | Podiatric Progress Note ---
Assessment/Plan Patient Woody Johnson is a 66 year old male who was admitted on Oct 06, 2017 at 21:54 with Assessment/Plan A/ 1) Osteomyelitis right 5th toe 2) Diabetic ulcer right 5th toe 3) DM neuropathy 4) h/o amputated toe left 2nd - healed 5) ESRD P/ 1) Reviewed MRI of right foot - OM noted. No abscess 2) Cont wound care 3) Cont abx per ID. No surgical intervention planned. 4) No weight bearing restrictions 5) Will follow Subjective Allergies: Coded Allergies: PENICILLINS (Verified Allergy, Unknown, 10/06/17) Objective Exam Last 24 Hour Vital Signs Date Time Temp Pulse Resp B/P (MAP) Pulse Ox O2 Delivery O2 Flow Rate FiO2 10/11/17 11:42 97.7 67 18 139/73 98 Room Air 97.7 10/11/17 09:32 67 154/72 10/11/17 09:32 67 154/72 10/11/17 08:16 98.3 67 18 154/72 97 Room Air 98.3 10/11/17 04:00 98.3 69 18 145/76 100 Room Air 98.3 10/11/17 00:04 98.4 72 20 142/79 99 Room Air 98.4 10/10/17 21:23 68 131/72 10/10/17 20:00 98.4 68 19 131/72 97 Room Air 98.4 10/10/17 16:02 97.0 67 18 151/71 97 Room Air 97.0 Laboratory Tests Test 10/10/17 15:26 10/11/17 07:14 Rapid Plasma Reagin Pending HIV (1&2) Antibody Rapid Negative (NEGATIVE) Random Vancomycin Level 8.8 ug/mL Microbiology Date/Time Source Procedure Growth Status 10/07/17 12:36 Blood Blood Culture - Preliminary NO GROWTH AFTER 72 HOURS Resulted 10/06/17 00:22 Nasal Nares MRSA Culture - Final NO METHICILLIN RESISTANT STAPH AUREUS... Complete Dermatological Wound Assessment : Wound location: right, toe Castano Classification: 3 deep abcess or osteomye Exudate Description: serous Exudate Amount: Scant Henrik Umaña DPMarianela Oct 11, 2017 13:59
--- NOTE | 2017-10-11 14:34 | Infectious Diseases Prog Note ---
Assessment/Plan Problems: (1) Right foot infection Assessment & Plan: with underlying osteomyelitis of the fifth toe , continue vancomycin with cefepime empiric coverage, MRI of the foot showed osteomyelitis of the fifth right toe , ESR is elevated. (2) Foot osteomyelitis, right Assessment & Plan: in the right fifth toe with erosions on X ray , and underlying osteomyelitis, confirmed with MRI of the right foot, will treat with vancomycin and cefepime for 6 weeks with HD .follow up with environmental program manager (3) ESRD (end stage renal disease) Assessment & Plan: on HD renal is following (4) Diabetes Assessment & Plan: recommend tight glycemic control to keep blood glucose between 100-140 (5) Perineal mass in male Assessment & Plan: rule out condyloma ( priya VS Buschke Vicky VS anogenital warts) will order RPR to rule out syphilis as an etiology , and HIV screening . surgery is following Subjective Constitutional: Reports: no symptoms HEENT: Reports: no symptoms Respiratory: Reports: no symptoms Breasts: Reports: no symptoms Cardiovascular: Reports: no symptoms Gastrointestinal/Abdominal: Reports: no symptoms Genitourinary: Reports: no symptoms Neurologic: Reports: no symptoms Psychiatric: Reports: no symptoms Skin: Reports: no symptoms Endocrine: Reports: no symptoms Hematologic: Reports: no symptoms Musculoskeletal: Reports: no symptoms Allergies: Coded Allergies: PENICILLINS (Verified Allergy, Unknown, 10/06/17) Subjective he was up in bed, doing ok, comfortable, denied any pain, afebrile Objective Vital Signs Last 24 Hour Vital Signs Date Time Temp Pulse Resp B/P (MAP) Pulse Ox O2 Delivery O2 Flow Rate FiO2 10/11/17 11:42 97.7 67 18 139/73 98 Room Air 97.7 10/11/17 09:32 67 154/72 10/11/17 09:32 67 154/72 10/11/17 08:16 98.3 67 18 154/72 97 Room Air 98.3 10/11/17 04:00 98.3 69 18 145/76 100 Room Air 98.3 10/11/17 00:04 98.4 72 20 142/79 99 Room Air 98.4 10/10/17 21:23 68 131/72 10/10/17 20:00 98.4 68 19 131/72 97 Room Air 98.4 10/10/17 16:02 97.0 67 18 151/71 97 Room Air 97.0 Height (Feet): 5 Height (Inches): 11.00 Weight (Pounds): 182 General Appearance: WD/WN, no acute distress HEENT: normocephalic, atraumatic, anicteric, mucous membranes moist Respiratory/Chest: chest wall non-tender, lungs clear, normal breath sounds, no respiratory distress, no accessory muscle use Cardiovascular: normal peripheral pulses, normal rate, regular rhythm, no gallop/murmur, no JVD Abdomen: normal bowel sounds, soft, non tender, no organomegaly, non distended , no mass, no scars Extremities: no cyanosis, no clubbing Skin: no rash, no lesions, no ulcers Neurologic/Psychiatric: alert, responsive Lymphatic: no neck adenopathy, no groin adenopathy Laboratory Tests Test 10/10/17 15:26 10/11/17 07:14 Rapid Plasma Reagin Pending HIV (1&2) Antibody Rapid Negative (NEGATIVE) Random Vancomycin Level 8.8 ug/mL Current Medications Medications (Trade) Dose Ordered Sig/Jose Route PRN Reason Start Time Stop Time Status Last Admin Dose Admin Acetaminophen (Tylenol) 500 mg Q8H PRN ORAL Prn Headache/Temp > 101 10/07/17 00:00 11/06/17 00:00 Amlodipine Besylate (Norvasc) 10 mg DAILY ORAL 10/07/17 09:00 11/06/17 08:59 10/11/17 09:32 Atorvastatin Calcium (Lipitor) 40 mg BEDTIME ORAL 10/07/17 00:27 11/06/17 00:26 10/10/17 21:23 Calcium Acetate (Phoslo) 667 mg TID ORAL 10/07/17 09:00 11/06/17 08:59 10/11/17 13:57 Carvedilol (Coreg) 25 mg EVERY 12 HOURS ORAL 10/07/17 00:28 11/06/17 00:27 10/11/17 09:32 Cefepime HCl 2 gm/ Dextrose 110 ml @ 220 mls/hr EVERY OTHER DAY@1700 IVPB 10/09/17 17:00 10/16/17 16:59 10/09/17 16:56 Clonidine HCl (Catapres Tab) 0.1 mg Q4H PRN ORAL bp over 160 syst 10/07/17 10:15 11/06/17 10:14 Dextrose (Dextrose 50%) 25 ml STAT PRN IV Hypoglycemia 10/07/17 00:00 11/06/17 00:00 Dextrose (Dextrose 50%) 50 ml STAT PRN IV Hypoglycemia 10/07/17 00:00 11/06/17 00:00 Diphenhydramine HCl (Benadryl) 25 mg EVERY 12 HOURS PRN ORAL Itching 10/07/17 00:00 11/06/17 00:00 Diphenoxylate HCl/ Atropine (Lomotil) 2.5 mg Q8HR PRN ORAL Diarrhea 10/07/17 00:00 11/06/17 00:00 Folic Acid (Folate) 1 mg DAILY ORAL 10/07/17 09:00 11/06/17 08:59 10/11/17 09:32 Heparin Sodium (Porcine) (Heparin 5000 units/ml) 5,000 units EVERY 12 HOURS SUBQ 10/07/17 00:33 11/06/17 00:32 10/11/17 09:33 Insulin Aspart (NovoLOG) BEFORE MEALS AND HS SUBQ 10/07/17 06:30 11/06/17 06:29 10/11/17 06:35 Insulin Detemir (Levemir) 10 units BEDTIME SUBQ 10/07/17 21:00 11/06/17 20:59 10/10/17 21:28 Pantoprazole (Protonix) 40 mg DAILY ORAL 10/07/17 09:00 11/06/17 08:59 10/11/17 09:32 Vancomycin HCl (Vanco rx to dose) 1 ea DAILY PRN MISC Per rx protocol (500-750 g) 10/08/17 15:45 11/07/17 15:44 Lorri Lim M.D. Oct 11, 2017 14:34
[2017-10-11 16:12] VITALS: BP 158/80
[2017-10-11] MEDS: Cefepime HCl 2 GM in D5W 110 ML IVPB SCH (17:39)
[2017-10-11] MEDS ORDERED: Vancomycin 1250mg/D5W 250ml IVPB ONE (18:00)
[2017-10-11 20:00] VITALS: BP 138/71
[2017-10-11] MEDS: Atorvastatin 80mg tab ORAL SCH (21:47)
[2017-10-11] MEDS: Levemir Flexpen SUBQ SCH (21:51)
[2017-10-12] VITALS (7 sets, daily range): BP systolic 125–164; BP diastolic 68–82
[2017-10-12 06:42] LABS: BASOPHILS % (AUTO) 0.7 % (0.0-2.0); EOSINOPHILS % (AUTO) 2.3 % (0.0-3.0); HEMATOCRIT 30.2 % (42.0-52.0); HEMOGLOBIN 10.1 G/DL (14.2-18.0); LYMPHOCYTES % (AUTO) 18.3 % (20.0-45.0); MEAN CORPUSCULAR VOLUME 88 FL (80-99); MONOCYTES % (AUTO) 12.3 % (1.0-10.0); NEUTROPHILS % (AUTO) 66.4 % (45.0-75.0); PLATELET COUNT 170 K/UL (150-450); RED BLOOD COUNT 3.44 M/UL (4.70-6.10); RED CELL DISTRIBUTION WIDTH 14.1 % (11.6-14.8); WHITE BLOOD COUNT 5.5 K/UL (4.8-10.8)
[2017-10-12] MEDS: NovoLOG Insulin Flexpen SUBQ SCH ×4 (06:42→20:19)
[2017-10-12 07:02] LABS: PHOSPHORUS 6.2 MG/DL (2.5-4.9)
[2017-10-12 07:06] LABS: ALANINE AMINOTRANSFERASE 13 U/L (12-78); ALBUMIN/GLOBULIN RATIO 0.7 (1.0-2.7); ALKALINE PHOSPHATASE 65 U/L (46-116); ANION GAP 9 mmol/L (5-15); ASPARTATE AMINO TRANSFERASE 10 U/L (15-37); BILIRUBIN,TOTAL 0.5 MG/DL (0.2-1.0); BLOOD UREA NITROGEN 79 mg/dL (7-18); CALCIUM 9.2 MG/DL (8.5-10.1); CARBON DIOXIDE 33 MMOL/L (21-32); CHLORIDE 90 MMOL/L (98-107); CREATININE 12.7 MG/DL (0.55-1.30); POTASSIUM 4.1 MMOL/L (3.5-5.1); SODIUM 132 MMOL/L (136-145)
[2017-10-12] MEDS: Calcium Acetate 667mg Tab ORAL SCH ×3 (07:51→17:16)
[2017-10-12] MEDS: Carvedilol 25mg Tab ORAL SCH ×2 (07:51→20:13)
[2017-10-12] MEDS: Heparin 5000 units/ml inj SUBQ SCH ×2 (07:52→20:13)
--- NOTE | 2017-10-12 11:31 | Nephrology Progress Note ---
Assessment/Plan Problem List: (1) ESRD (end stage renal disease) (2) Diabetes (3) Foot osteomyelitis, right (4) Hypertensive kidney disease Assessment ESRD (end stage renal disease) due HD today has left arm fistula Dementia HTN Right foot infection Diabetes Toe deformity, acquired Plan HD next 10/12 BP management ? DC planning Subjective ROS Limited/Unobtainable: No Constitutional: Reports: malaise Objective Objective Last 24 Hour Vital Signs Date Time Temp Pulse Resp B/P (MAP) Pulse Ox O2 Delivery O2 Flow Rate FiO2 10/12/17 10:17 97.5 10/12/17 07:53 97.5 71 18 127/70 97 Room Air 97.5 10/12/17 07:52 71 127/70 10/12/17 07:51 71 127/70 10/12/17 04:00 98.6 71 18 125/72 97 Room Air 98.6 10/12/17 00:00 98.2 72 20 132/73 97 Room Air 98.2 10/11/17 21:47 69 138/71 10/11/17 20:00 98.4 69 19 138/71 98 Room Air 98.4 10/11/17 16:12 98.1 71 18 158/80 100 Room Air 98.1 10/11/17 11:42 97.7 67 18 139/73 98 Room Air 97.7 Intake and Output 10/11/17 10/12/17 19:00 07:00 Intake Total 710 ml 320 ml Balance 710 ml 320 ml Intake Oral 600 ml 320 ml IV Total 110 ml Laboratory Tests 10/12/17 06:15: White Blood Count 5.5, Red Blood Count 3.44L, Hemoglobin 10.1L, Hematocrit 30.2L , Mean Corpuscular Volume 88, Mean Corpuscular Hemoglobin 29.2, Mean Corpuscular Hemoglobin Concent 33.3, Red Cell Distribution Width 14.1, Platelet Count 170, Mean Platelet Volume 6.3L, Neutrophils (%) (Auto) 66.4, Lymphocytes ( %) (Auto) 18.3L, Monocytes (%) (Auto) 12.3H, Eosinophils (%) (Auto) 2.3, Basophils (%) (Auto) 0.7, Sodium Level 132L, Potassium Level 4.1, Chloride Level 90L, Carbon Dioxide Level 33H, Anion Gap 9, Blood Urea Nitrogen 79H, Creatinine 12.7H, Estimat Glomerular Filtration Rate 4.0, Glucose Level 124H, Uric Acid 6.8, Calcium Level 9.2, Phosphorus Level 6.2H, Magnesium Level 2.4, Total Bilirubin 0.5, Aspartate Amino Transf (AST/SGOT) 10L, Alanine Aminotransferase (ALT/SGPT) 13, Alkaline Phosphatase 65, C-Reactive Protein, Quantitative 1.4H, Pro-B-Type Natriuretic Peptide [Pending], Total Protein 7.6, Albumin 3.0L, Globulin 4.6, Albumin/Globulin Ratio 0.7L Height (Feet): 5 Height (Inches): 11.00 Weight (Pounds): 180 General Appearance: no apparent distress Objective no change PELON ESCALONA Oct 12, 2017 11:31
--- NOTE | 2017-10-12 12:07 | General Progress Note ---
Assessment/Plan Assessment/Plan S: I am ok O: appears in mild pain in right foot, poor historian PHYSICAL EXAMINATION: HEAD AND NECK: Atraumatic and normocephalic. CHEST: Clear to auscultation. HEART: S1 and S2. Regular rate and rhythm. ABDOMEN: Soft. No organomegaly. MUSCULOSKELETAL: Positive for the AV graft/shunt in the left upper extremity. Positive for chronic Charcot foot on right side. appropriately dressed. Mild tenderness. NEUROLOGY: The patient is awake, alert and oriented x2. Positive for decline in the cognition. Lack of memory. DERM: large exophytic soft tissue mass in perianal region Meds : Reviewed and reconciled. Including Vanco and cefepim ASSESSMENT AND PLAN: 1. Acute on Chronic right foot osteomyelitis. 2. Chronic Charcot feet (more on the right than the left). 3. Diabetes type 2. 4. End-stage renal disease, on hemodialysis. 5. Chronic anemia. 6. GI and DVT prophylaxis. 7. New large exophytic soft tissue mass in perianal region Plan: Will followup the Path report as an outpatient No Acute pathology finding Will followup as o/p with treatment per ID Rec. Subjective Allergies: Coded Allergies: PENICILLINS (Verified Allergy, Unknown, 10/06/17) Objective Last 24 Hour Vital Signs Date Time Temp Pulse Resp B/P (MAP) Pulse Ox O2 Delivery O2 Flow Rate FiO2 10/12/17 10:17 97.5 10/12/17 07:53 97.5 71 18 127/70 97 Room Air 97.5 10/12/17 07:52 71 127/70 10/12/17 07:51 71 127/70 10/12/17 04:00 98.6 71 18 125/72 97 Room Air 98.6 10/12/17 00:00 98.2 72 20 132/73 97 Room Air 98.2 10/11/17 21:47 69 138/71 10/11/17 20:00 98.4 69 19 138/71 98 Room Air 98.4 10/11/17 16:12 98.1 71 18 158/80 100 Room Air 98.1 Intake and Output 10/11/17 10/12/17 19:00 07:00 Intake Total 710 ml 320 ml Balance 710 ml 320 ml Intake Oral 600 ml 320 ml IV Total 110 ml Laboratory Tests 10/12/17 06:15: White Blood Count 5.5, Red Blood Count 3.44L, Hemoglobin 10.1L, Hematocrit 30.2L , Mean Corpuscular Volume 88, Mean Corpuscular Hemoglobin 29.2, Mean Corpuscular Hemoglobin Concent 33.3, Red Cell Distribution Width 14.1, Platelet Count 170, Mean Platelet Volume 6.3L, Neutrophils (%) (Auto) 66.4, Lymphocytes ( %) (Auto) 18.3L, Monocytes (%) (Auto) 12.3H, Eosinophils (%) (Auto) 2.3, Basophils (%) (Auto) 0.7, Sodium Level 132L, Potassium Level 4.1, Chloride Level 90L, Carbon Dioxide Level 33H, Anion Gap 9, Blood Urea Nitrogen 79H, Creatinine 12.7H, Estimat Glomerular Filtration Rate 4.0, Glucose Level 124H, Uric Acid 6.8, Calcium Level 9.2, Phosphorus Level 6.2H, Magnesium Level 2.4, Total Bilirubin 0.5, Aspartate Amino Transf (AST/SGOT) 10L, Alanine Aminotransferase (ALT/SGPT) 13, Alkaline Phosphatase 65, C-Reactive Protein, Quantitative 1.4H, Pro-B-Type Natriuretic Peptide 9919H, Total Protein 7.6, Albumin 3.0L, Globulin 4.6, Albumin/Globulin Ratio 0.7L Height (Feet): 5 Height (Inches): 11.00 Weight (Pounds): 180 Nadir Moise MD Oct 12, 2017 12:07
--- NOTE | 2017-10-12 15:25 | General Surgery Progress Note ---
General Surgery-Progress Note Subjective Additional Comments doing well. no acute events. biopsy completed and path pending Objective Last 24 Hour Vital Signs Date Time Temp Pulse Resp B/P (MAP) Pulse Ox O2 Delivery O2 Flow Rate FiO2 10/12/17 11:16 97.5 10/12/17 10:17 97.5 10/12/17 07:53 97.5 71 18 127/70 97 Room Air 97.5 10/12/17 07:52 71 127/70 10/12/17 07:51 71 127/70 10/12/17 04:00 98.6 71 18 125/72 97 Room Air 98.6 10/12/17 00:00 98.2 72 20 132/73 97 Room Air 98.2 10/11/17 21:47 69 138/71 10/11/17 20:00 98.4 69 19 138/71 98 Room Air 98.4 10/11/17 16:12 98.1 71 18 158/80 100 Room Air 98.1 I&O Intake and Output 10/11/17 10/12/17 19:00 07:00 Intake Total 710 ml 320 ml Balance 710 ml 320 ml Intake Oral 600 ml 320 ml IV Total 110 ml Dressing: saturated Wound: clean Drains: none Cardiovascular: RSR Respiratory: clear Abdomen: soft, flat, non-tender, present bowel sounds Laboratory Tests Test 10/12/17 06:15 White Blood Count 5.5 K/UL (4.8-10.8) Red Blood Count 3.44 M/UL (4.70-6.10) L Hemoglobin 10.1 G/DL (14.2-18.0) L Hematocrit 30.2 % (42.0-52.0) L Mean Corpuscular Volume 88 FL (80-99) Mean Corpuscular Hemoglobin 29.2 PG (27.0-31.0) Mean Corpuscular Hemoglobin Concent 33.3 G/DL (32.0-36.0) Red Cell Distribution Width 14.1 % (11.6-14.8) Platelet Count 170 K/UL (150-450) Mean Platelet Volume 6.3 FL (6.5-10.1) L Neutrophils (%) (Auto) 66.4 % (45.0-75.0) Lymphocytes (%) (Auto) 18.3 % (20.0-45.0) L Monocytes (%) (Auto) 12.3 % (1.0-10.0) H Eosinophils (%) (Auto) 2.3 % (0.0-3.0) Basophils (%) (Auto) 0.7 % (0.0-2.0) Sodium Level 132 MMOL/L (136-145) L Potassium Level 4.1 MMOL/L (3.5-5.1) Chloride Level 90 MMOL/L (98-107) L Carbon Dioxide Level 33 MMOL/L (21-32) H Anion Gap 9 mmol/L (5-15) Blood Urea Nitrogen 79 mg/dL (7-18) H Creatinine 12.7 MG/DL (0.55-1.30) H Estimat Glomerular Filtration Rate 4.0 mL/min (>60) Glucose Level 124 MG/DL (74-106) H Uric Acid 6.8 MG/DL (2.6-7.2) Calcium Level 9.2 MG/DL (8.5-10.1) Phosphorus Level 6.2 MG/DL (2.5-4.9) H Magnesium Level 2.4 MG/DL (1.8-2.4) Total Bilirubin 0.5 MG/DL (0.2-1.0) Aspartate Amino Transf (AST/SGOT) 10 U/L (15-37) L Alanine Aminotransferase (ALT/SGPT) 13 U/L (12-78) Alkaline Phosphatase 65 U/L (46-116) C-Reactive Protein, Quantitative 1.4 mg/dL (0.00-0.90) H Pro-B-Type Natriuretic Peptide 9919 pg/mL (0-125) H Total Protein 7.6 G/DL (6.4-8.2) Albumin 3.0 G/DL (3.4-5.0) L Globulin 4.6 g/dL Albumin/Globulin Ratio 0.7 (1.0-2.7) L Plan Problems: (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 pedunculated "ground beef" growth. extensive surgical scars with skin grafts around waist, hips, perineum. unfortunately patient poor historian and unable to give details as to prior history. he is not aware of large mass. he is resident of care facility at this time. CT reviewed and no acute process noted. did note prostate abnormality. very interesting case. needs further work up to identify etiology of tumor. -okay to d/c from surgical standpoint. -will await path results Agapito Porras Oct 12, 2017 15:25
--- NOTE | 2017-10-12 15:52 | Infectious Diseases Prog Note ---
Assessment/Plan Problems: (1) Right foot infection Assessment & Plan: with underlying osteomyelitis of the fifth toe , continue vancomycin with cefepime empiric treatment for 6 weeks , MRI of the foot showed osteomyelitis of the fifth right toe , ESR is elevated. (2) Foot osteomyelitis, right Assessment & Plan: in the right fifth toe with erosions on X ray , and underlying osteomyelitis, confirmed with MRI of the right foot, will treat with vancomycin and cefepime for 6 weeks with HD .follow up with children's attendant. EOT 12/18/17 (3) ESRD (end stage renal disease) Assessment & Plan: on HD renal is following (4) Diabetes Assessment & Plan: recommend tight glycemic control to keep blood glucose between 100-140 (5) Perineal mass in male Assessment & Plan: rule out condyloma ( pirya VS Buschke Vicky VS anogenital warts) will order RPR to rule out syphilis as an etiology , and HIV screening . surgery is following Subjective Constitutional: Reports: no symptoms HEENT: Reports: no symptoms Respiratory: Reports: no symptoms Breasts: Reports: no symptoms Cardiovascular: Reports: no symptoms Gastrointestinal/Abdominal: Reports: no symptoms Genitourinary: Reports: no symptoms Neurologic: Reports: no symptoms Psychiatric: Reports: no symptoms Skin: Reports: no symptoms Endocrine: Reports: no symptoms Hematologic: Reports: no symptoms Musculoskeletal: Reports: no symptoms Allergies: Coded Allergies: PENICILLINS (Verified Allergy, Unknown, 10/06/17) Subjective he was up in bed, doing ok, comfortable, denied any pain, afebrile Objective Vital Signs Last 24 Hour Vital Signs Date Time Temp Pulse Resp B/P (MAP) Pulse Ox O2 Delivery O2 Flow Rate FiO2 10/12/17 11:16 97.5 10/12/17 10:17 97.5 10/12/17 07:53 97.5 71 18 127/70 97 Room Air 97.5 10/12/17 07:52 71 127/70 10/12/17 07:51 71 127/70 10/12/17 04:00 98.6 71 18 125/72 97 Room Air 98.6 10/12/17 00:00 98.2 72 20 132/73 97 Room Air 98.2 10/11/17 21:47 69 138/71 10/11/17 20:00 98.4 69 19 138/71 98 Room Air 98.4 10/11/17 16:12 98.1 71 18 158/80 100 Room Air 98.1 Height (Feet): 5 Height (Inches): 11.00 Weight (Pounds): 180 General Appearance: WD/WN, no acute distress HEENT: normocephalic, atraumatic, anicteric, mucous membranes moist, PERRL Respiratory/Chest: chest wall non-tender, lungs clear, normal breath sounds, no respiratory distress, no accessory muscle use Cardiovascular: normal peripheral pulses, normal rate, regular rhythm, no gallop/murmur, no JVD Abdomen: normal bowel sounds, soft, non tender, no organomegaly, non distended , no mass, no scars Genitourinary: normal external genitalia Extremities: no cyanosis, no clubbing, other - right small toe redness and swelling Skin: no rash, no lesions Neurologic/Psychiatric: alert, responsive Laboratory Tests Test 10/12/17 06:15 White Blood Count 5.5 K/UL (4.8-10.8) Red Blood Count 3.44 M/UL (4.70-6.10) L Hemoglobin 10.1 G/DL (14.2-18.0) L Hematocrit 30.2 % (42.0-52.0) L Mean Corpuscular Volume 88 FL (80-99) Mean Corpuscular Hemoglobin 29.2 PG (27.0-31.0) Mean Corpuscular Hemoglobin Concent 33.3 G/DL (32.0-36.0) Red Cell Distribution Width 14.1 % (11.6-14.8) Platelet Count 170 K/UL (150-450) Mean Platelet Volume 6.3 FL (6.5-10.1) L Neutrophils (%) (Auto) 66.4 % (45.0-75.0) Lymphocytes (%) (Auto) 18.3 % (20.0-45.0) L Monocytes (%) (Auto) 12.3 % (1.0-10.0) H Eosinophils (%) (Auto) 2.3 % (0.0-3.0) Basophils (%) (Auto) 0.7 % (0.0-2.0) Sodium Level 132 MMOL/L (136-145) L Potassium Level 4.1 MMOL/L (3.5-5.1) Chloride Level 90 MMOL/L (98-107) L Carbon Dioxide Level 33 MMOL/L (21-32) H Anion Gap 9 mmol/L (5-15) Blood Urea Nitrogen 79 mg/dL (7-18) H Creatinine 12.7 MG/DL (0.55-1.30) H Estimat Glomerular Filtration Rate 4.0 mL/min (>60) Glucose Level 124 MG/DL (74-106) H Uric Acid 6.8 MG/DL (2.6-7.2) Calcium Level 9.2 MG/DL (8.5-10.1) Phosphorus Level 6.2 MG/DL (2.5-4.9) H Magnesium Level 2.4 MG/DL (1.8-2.4) Total Bilirubin 0.5 MG/DL (0.2-1.0) Aspartate Amino Transf (AST/SGOT) 10 U/L (15-37) L Alanine Aminotransferase (ALT/SGPT) 13 U/L (12-78) Alkaline Phosphatase 65 U/L (46-116) C-Reactive Protein, Quantitative 1.4 mg/dL (0.00-0.90) H Pro-B-Type Natriuretic Peptide 9919 pg/mL (0-125) H Total Protein 7.6 G/DL (6.4-8.2) Albumin 3.0 G/DL (3.4-5.0) L Globulin 4.6 g/dL Albumin/Globulin Ratio 0.7 (1.0-2.7) L Current Medications Medications (Trade) Dose Ordered Sig/Jose Route PRN Reason Start Time Stop Time Status Last Admin Dose Admin Acetaminophen (Tylenol) 500 mg Q8H PRN ORAL Prn Headache/Temp > 101 10/07/17 00:00 11/06/17 00:00 10/12/17 10:17 Amlodipine Besylate (Norvasc) 10 mg DAILY ORAL 10/07/17 09:00 11/06/17 08:59 10/12/17 07:52 Atorvastatin Calcium (Lipitor) 40 mg BEDTIME ORAL 10/07/17 00:27 11/06/17 00:26 10/11/17 21:47 Calcium Acetate (Phoslo) 1,334 mg TID ORAL 10/12/17 13:00 7/28/18 08:59 10/12/17 12:26 Carvedilol (Coreg) 25 mg EVERY 12 HOURS ORAL 10/07/17 00:28 11/06/17 00:27 10/12/17 07:51 Cefepime HCl 2 gm/ Dextrose 110 ml @ 220 mls/hr EVERY OTHER DAY@1700 IVPB 10/09/17 17:00 10/16/17 16:59 10/11/17 17:39 Clonidine HCl (Catapres Tab) 0.1 mg Q4H PRN ORAL bp over 160 syst 10/07/17 10:15 11/06/17 10:14 Dextrose (Dextrose 50%) 25 ml STAT PRN IV Hypoglycemia 10/07/17 00:00 11/06/17 00:00 Dextrose (Dextrose 50%) 50 ml STAT PRN IV Hypoglycemia 10/07/17 00:00 11/06/17 00:00 Diphenhydramine HCl (Benadryl) 25 mg EVERY 12 HOURS PRN ORAL Itching 10/07/17 00:00 11/06/17 00:00 Diphenoxylate HCl/ Atropine (Lomotil) 2.5 mg Q8HR PRN ORAL Diarrhea 10/07/17 00:00 11/06/17 00:00 Folic Acid (Folate) 1 mg DAILY ORAL 10/07/17 09:00 11/06/17 08:59 10/12/17 07:51 Heparin Sodium (Porcine) (Heparin 5000 units/ml) 5,000 units EVERY 12 HOURS SUBQ 10/07/17 00:33 11/06/17 00:32 10/11/17 21:50 Insulin Aspart (NovoLOG) BEFORE MEALS AND HS SUBQ 10/07/17 06:30 11/06/17 06:29 10/12/17 06:42 Insulin Detemir (Levemir) 10 units BEDTIME SUBQ 10/07/17 21:00 11/06/17 20:59 10/11/17 21:51 Pantoprazole (Protonix) 40 mg DAILY ORAL 10/07/17 09:00 11/06/17 08:59 10/12/17 07:51 Vancomycin HCl (Vanco rx to dose) 1 ea DAILY PRN MISC Per rx protocol (500-750 g) 10/08/17 15:45 11/07/17 15:44 Lorri Lim M.D. Oct 12, 2017 15:52
[2017-10-12] MEDS: Atorvastatin 80mg tab ORAL SCH (20:15)
[2017-10-12] MEDS: Levemir Flexpen SUBQ SCH (20:18)
[2017-10-13] VITALS (7 sets, daily range): BP systolic 118–147; BP diastolic 65–83
[2017-10-13] MEDS: NovoLOG Insulin Flexpen SUBQ SCH ×4 (06:30→20:59)
--- NOTE | 2017-10-13 08:24 | General Progress Note ---
Assessment/Plan Assessment/Plan S: I am ok O: appears in mild pain in right foot, poor historian PHYSICAL EXAMINATION: HEAD AND NECK: Atraumatic and normocephalic. CHEST: Clear to auscultation. HEART: S1 and S2. Regular rate and rhythm. ABDOMEN: Soft. No organomegaly. MUSCULOSKELETAL: Positive for the AV graft/shunt in the left upper extremity. Positive for chronic Charcot foot on right side. appropriately dressed. Mild tenderness. NEUROLOGY: The patient is awake, alert and oriented x2. Positive for decline in the cognition. Lack of memory. DERM: large exophytic soft tissue mass in perianal region Meds : Reviewed and reconciled. Including Vanco and cefepim ASSESSMENT AND PLAN: 1. Acute on Chronic right foot osteomyelitis. 2. Chronic Charcot feet (more on the right than the left). 3. Diabetes type 2. 4. End-stage renal disease, on hemodialysis. 5. Chronic anemia. 6. GI and DVT prophylaxis. 7. New large exophytic soft tissue mass in perianal region Plan: Will followup the Path report as an outpatient No Acute pathology finding Will followup as o/p with treatment per ID Rec. Monitor electrolyte, per Nephro Rec. Subjective Allergies: Coded Allergies: PENICILLINS (Verified Allergy, Unknown, 10/06/17) Objective Last 24 Hour Vital Signs Date Time Temp Pulse Resp B/P (MAP) Pulse Ox O2 Delivery O2 Flow Rate FiO2 10/13/17 04:00 97.9 82 19 138/79 96 Room Air 97.9 10/13/17 00:42 98.9 86 18 118/71 97 Room Air 98.9 10/13/17 00:02 Room Air 10/13/17 00:01 98.1 85 20 145/66 Room Air 98.1 10/12/17 20:30 Room Air 10/12/17 20:30 97.8 75 20 164/82 Room Air 97.8 10/12/17 20:13 74 153/80 10/12/17 20:00 98.7 74 17 153/80 96 Room Air 98.7 10/12/17 16:00 98.0 72 18 140/71 97 Room Air 98.0 10/12/17 12:00 98.2 70 18 130/68 97 Room Air 98.2 10/12/17 11:16 97.5 10/12/17 10:17 97.5 Intake and Output 10/12/17 10/13/17 19:00 07:00 Intake Total 840 ml 200 ml Output Total 2550 ml Balance 840 ml -2350 ml Intake Oral 840 ml 200 ml Output Hemodialysis UF 2550 ml # Bowel Movements 2 Height (Feet): 5 Height (Inches): 11.00 Weight (Pounds): 185 Nadir Moise MD Oct 13, 2017 08:24
[2017-10-13] MEDS: Carvedilol 25mg Tab ORAL SCH ×2 (08:44→20:53)
[2017-10-13] MEDS: Calcium Acetate 667mg Tab ORAL SCH ×3 (08:47→17:04)
[2017-10-13] MEDS: Heparin 5000 units/ml inj SUBQ SCH ×2 (08:54→20:54)
--- NOTE | 2017-10-13 13:04 | General Surgery Progress Note ---
General Surgery-Progress Note Subjective Symptoms: improved, pain absent, tolerating diet, passing flatus Objective Last 24 Hour Vital Signs Date Time Temp Pulse Resp B/P (MAP) Pulse Ox O2 Delivery O2 Flow Rate FiO2 10/13/17 08:44 80 122/72 10/13/17 08:44 80 122/72 10/13/17 08:00 98.4 80 20 122/72 99 Room Air 98.4 10/13/17 04:00 97.9 82 19 138/79 96 Room Air 97.9 10/13/17 00:42 98.9 86 18 118/71 97 Room Air 98.9 10/13/17 00:02 Room Air 10/13/17 00:01 98.1 85 20 145/66 Room Air 98.1 10/12/17 20:30 Room Air 10/12/17 20:30 97.8 75 20 164/82 Room Air 97.8 10/12/17 20:13 74 153/80 10/12/17 20:00 98.7 74 17 153/80 96 Room Air 98.7 10/12/17 16:00 98.0 72 18 140/71 97 Room Air 98.0 I&O Intake and Output 10/12/17 10/13/17 19:00 07:00 Intake Total 840 ml 200 ml Output Total 2550 ml Balance 840 ml -2350 ml Intake Oral 840 ml 200 ml Output Hemodialysis UF 2550 ml # Bowel Movements 2 Dressing: dry Wound: clean Drains: none Cardiovascular: RSR Respiratory: clear Abdomen: soft, non-tender, present bowel sounds Extremities: other - see photos Plan Problems: (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 pedunculated "ground beef" growth. extensive surgical scars with skin grafts around waist, hips, perineum. unfortunately patient poor historian and unable to give details as to prior history. he is not aware of large mass. he is resident of care facility at this time. CT reviewed and no acute process noted. did note prostate abnormality. very interesting case. needs further work up to identify etiology of tumor. -okay to d/c from surgical standpoint. -will await path results Agapito Porras Oct 13, 2017 13:04
--- NOTE | 2017-10-13 14:07 | Nephrology Progress Note ---
Assessment/Plan Problem List: (1) ESRD (end stage renal disease) (2) Diabetes (3) Foot osteomyelitis, right (4) Hypertensive kidney disease Assessment ESRD (end stage renal disease) due HD today has left arm fistula Dementia HTN Right foot infection Diabetes Toe deformity, acquired Plan HD next 10/14 BP management ? DC planning Subjective ROS Limited/Unobtainable: No Constitutional: Reports: malaise Objective Objective Last 24 Hour Vital Signs Date Time Temp Pulse Resp B/P (MAP) Pulse Ox O2 Delivery O2 Flow Rate FiO2 10/13/17 12:00 98.2 84 20 124/72 96 Room Air 98.2 10/13/17 08:44 80 122/72 10/13/17 08:44 80 122/72 10/13/17 08:00 98.4 80 20 122/72 99 Room Air 98.4 10/13/17 04:00 97.9 82 19 138/79 96 Room Air 97.9 10/13/17 00:42 98.9 86 18 118/71 97 Room Air 98.9 10/13/17 00:02 Room Air 10/13/17 00:01 98.1 85 20 145/66 Room Air 98.1 10/12/17 20:30 Room Air 10/12/17 20:30 97.8 75 20 164/82 Room Air 97.8 10/12/17 20:13 74 153/80 10/12/17 20:00 98.7 74 17 153/80 96 Room Air 98.7 10/12/17 16:00 98.0 72 18 140/71 97 Room Air 98.0 Intake and Output 10/12/17 10/13/17 19:00 07:00 Intake Total 840 ml 200 ml Output Total 2550 ml Balance 840 ml -2350 ml Intake Oral 840 ml 200 ml Output Hemodialysis UF 2550 ml # Bowel Movements 2 Height (Feet): 5 Height (Inches): 11.00 Weight (Pounds): 185 General Appearance: no apparent distress Cardiovascular: regular rhythm Respiratory/Chest: lungs clear Abdomen: soft Objective no change PELON ESCALONA Oct 13, 2017 14:07
--- NOTE | 2017-10-13 14:41 | Infectious Diseases Prog Note ---
Assessment/Plan Problems: (1) Right foot infection Assessment & Plan: with underlying osteomyelitis of the fifth toe , continue vancomycin with cefepime empiric treatment for 6 weeks , MRI of the foot showed osteomyelitis of the fifth right toe , ESR is elevated. (2) Foot osteomyelitis, right Assessment & Plan: in the right fifth toe with erosions on X ray , and underlying osteomyelitis, confirmed with MRI of the right foot, will treat with vancomycin and cefepime for 6 weeks with HD .follow up with advertising executive. EOT 12/18/17 (3) ESRD (end stage renal disease) Assessment & Plan: on HD renal is following (4) Diabetes Assessment & Plan: recommend tight glycemic control to keep blood glucose between 100-140 (5) Perineal mass in male Assessment & Plan: rule out condyloma ( priya VS Buschke Vicky VS anogenital warts) will order RPR to rule out syphilis as an etiology , and HIV screening . surgery is following Subjective Constitutional: Reports: no symptoms HEENT: Reports: no symptoms Respiratory: Reports: no symptoms Breasts: Reports: no symptoms Cardiovascular: Reports: no symptoms Gastrointestinal/Abdominal: Reports: no symptoms Genitourinary: Reports: no symptoms Neurologic: Reports: no symptoms Psychiatric: Reports: no symptoms Skin: Reports: no symptoms Endocrine: Reports: no symptoms Hematologic: Reports: no symptoms Musculoskeletal: Reports: no symptoms Allergies: Coded Allergies: PENICILLINS (Verified Allergy, Unknown, 10/06/17) Subjective he was up in bed, doing ok, comfortable, denied any pain, afebrile Objective Vital Signs Last 24 Hour Vital Signs Date Time Temp Pulse Resp B/P (MAP) Pulse Ox O2 Delivery O2 Flow Rate FiO2 10/13/17 12:00 98.2 84 20 124/72 96 Room Air 98.2 10/13/17 08:44 80 122/72 10/13/17 08:44 80 122/72 10/13/17 08:00 98.4 80 20 122/72 99 Room Air 98.4 10/13/17 04:00 97.9 82 19 138/79 96 Room Air 97.9 10/13/17 00:42 98.9 86 18 118/71 97 Room Air 98.9 10/13/17 00:02 Room Air 10/13/17 00:01 98.1 85 20 145/66 Room Air 98.1 10/12/17 20:30 Room Air 10/12/17 20:30 97.8 75 20 164/82 Room Air 97.8 10/12/17 20:13 74 153/80 10/12/17 20:00 98.7 74 17 153/80 96 Room Air 98.7 10/12/17 16:00 98.0 72 18 140/71 97 Room Air 98.0 Height (Feet): 5 Height (Inches): 11.00 Weight (Pounds): 185 General Appearance: WD/WN, no acute distress HEENT: normocephalic, atraumatic, anicteric, mucous membranes moist, PERRL Respiratory/Chest: chest wall non-tender, lungs clear, normal breath sounds, no respiratory distress, no accessory muscle use Cardiovascular: normal peripheral pulses, normal rate, regular rhythm, no gallop/murmur, no JVD Abdomen: normal bowel sounds, soft, non tender, no organomegaly, non distended , no mass, no scars Genitourinary: normal external genitalia Extremities: no cyanosis, no clubbing, other - right small toe swelling, and redness Skin: no rash, no lesions Neurologic/Psychiatric: alert, responsive Lymphatic: no neck adenopathy, no groin adenopathy Current Medications Medications (Trade) Dose Ordered Sig/Jose Route PRN Reason Start Time Stop Time Status Last Admin Dose Admin Acetaminophen (Tylenol) 500 mg Q8H PRN ORAL Prn Headache/Temp > 101 10/07/17 00:00 11/06/17 00:00 10/12/17 10:17 Amlodipine Besylate (Norvasc) 10 mg DAILY ORAL 10/07/17 09:00 11/06/17 08:59 10/12/17 07:52 Atorvastatin Calcium (Lipitor) 40 mg BEDTIME ORAL 10/07/17 00:27 11/06/17 00:26 10/12/17 20:15 Calcium Acetate (Phoslo) 1,334 mg TID ORAL 10/12/17 13:00 11/06/17 08:59 10/13/17 08:47 Carvedilol (Coreg) 25 mg EVERY 12 HOURS ORAL 10/07/17 00:28 11/06/17 00:27 10/12/17 07:51 Cefepime HCl 2 gm/ Dextrose 110 ml @ 220 mls/hr EVERY OTHER DAY@1700 IVPB 10/09/17 17:00 10/16/17 16:59 10/11/17 17:39 Clonidine HCl (Catapres Tab) 0.1 mg Q4H PRN ORAL bp over 160 syst 10/07/17 10:15 11/06/17 10:14 Dextrose (Dextrose 50%) 25 ml STAT PRN IV Hypoglycemia 10/07/17 00:00 11/06/17 00:00 Dextrose (Dextrose 50%) 50 ml STAT PRN IV Hypoglycemia 10/07/17 00:00 11/06/17 00:00 Diphenhydramine HCl (Benadryl) 25 mg EVERY 12 HOURS PRN ORAL Itching 10/07/17 00:00 11/06/17 00:00 Diphenoxylate HCl/ Atropine (Lomotil) 2.5 mg Q8HR PRN ORAL Diarrhea 10/07/17 00:00 11/06/17 00:00 Folic Acid (Folate) 1 mg DAILY ORAL 10/07/17 09:00 11/06/17 08:59 10/13/17 08:46 Heparin Sodium (Porcine) (Heparin 5000 units/ml) 5,000 units EVERY 12 HOURS SUBQ 10/07/17 00:33 11/06/17 00:32 10/13/17 08:54 Insulin Aspart (NovoLOG) BEFORE MEALS AND HS SUBQ 10/07/17 06:30 11/06/17 06:29 10/12/17 20:19 Insulin Detemir (Levemir) 10 units BEDTIME SUBQ 10/07/17 21:00 11/06/17 20:59 10/12/17 20:18 Pantoprazole (Protonix) 40 mg DAILY ORAL 10/07/17 09:00 11/06/17 08:59 10/13/17 08:46 Vancomycin HCl (Vanco rx to dose) 1 ea DAILY PRN MISC Per rx protocol (500-750 g) 10/08/17 15:45 11/07/17 15:44 Lorri Lim M.D. Oct 13, 2017 14:41
[2017-10-13] MEDS ORDERED: D5 1/2NS 1000ml IV ONE (15:48)
[2017-10-13] MEDS: Cefepime HCl 2 GM in D5W 110 ML IVPB SCH (17:04)
[2017-10-13] MEDS ORDERED: Vancomycin 1250mg/D5W 250ml IVPB ONE (18:00)
[2017-10-13] MEDS: Atorvastatin 80mg tab ORAL SCH (20:53)
[2017-10-13] MEDS: Levemir Flexpen SUBQ SCH (20:56)
[2017-10-14] VITALS (8 sets, daily range): BP systolic 110–134; BP diastolic 50–75
[2017-10-14] MEDS: NovoLOG Insulin Flexpen SUBQ SCH ×2 (05:52→12:08)
--- NOTE | 2017-10-14 08:46 | General Surgery Progress Note ---
General Surgery-Progress Note Subjective Additional Comments no acute events. doing well. comfortable. no complaints. Objective Last 24 Hour Vital Signs Date Time Temp Pulse Resp B/P (MAP) Pulse Ox O2 Delivery O2 Flow Rate FiO2 10/14/17 08:00 98.0 69 20 125/68 97 98.0 10/14/17 04:00 97.3 68 20 130/73 97 Room Air 97.3 10/14/17 00:00 97.5 67 21 110/65 95 Room Air 97.5 10/13/17 20:53 76 147/83 10/13/17 19:24 98.1 76 20 147/83 97 Room Air 98.1 10/13/17 16:00 97.6 75 20 122/65 98 97.6 10/13/17 12:00 98.2 84 20 124/72 96 Room Air 98.2 I&O Intake and Output 10/13/17 10/14/17 19:00 07:00 Intake Total 570 ml 400 ml Balance 570 ml 400 ml Intake Oral 460 ml 400 ml IV Total 110 ml Wound: clean Drains: none Cardiovascular: RSR Respiratory: clear Abdomen: soft, flat, non-tender, present bowel sounds Extremities: no cyanosis Plan Problems: (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 pedunculated "ground beef" growth. extensive surgical scars with skin grafts around waist, hips, perineum. unfortunately patient poor historian and unable to give details as to prior history. he is not aware of large mass. he is resident of care facility at this time. CT reviewed and no acute process noted. did note prostate abnormality. very interesting case. needs further work up to identify etiology of tumor. -okay to d/c from surgical standpoint. -will await path results Agapito Porras Oct 14, 2017 08:46
[2017-10-14] MEDS: Carvedilol 25mg Tab ORAL SCH (09:02)
[2017-10-14] MEDS: Calcium Acetate 667mg Tab ORAL SCH ×2 (09:02→13:40)
[2017-10-14] MEDS: Heparin 5000 units/ml inj SUBQ SCH (09:03)
--- NOTE | 2017-10-14 10:56 | General Progress Note ---
Assessment/Plan Assessment/Plan S: I am ok O: appears in mild pain in right foot, poor historian PHYSICAL EXAMINATION: HEAD AND NECK: Atraumatic and normocephalic. CHEST: Clear to auscultation. HEART: S1 and S2. Regular rate and rhythm. ABDOMEN: Soft. No organomegaly. MUSCULOSKELETAL: Positive for the AV graft/shunt in the left upper extremity. Positive for chronic Charcot foot on right side. appropriately dressed. Mild tenderness. NEUROLOGY: The patient is awake, alert and oriented x2. Positive for decline in the cognition. Lack of memory. DERM: large exophytic soft tissue mass in perianal region Meds : Reviewed and reconciled. Including Vanco and cefepim ASSESSMENT AND PLAN: 1. Acute on Chronic right foot osteomyelitis. 2. Chronic Charcot feet (more on the right than the left). 3. Diabetes type 2. 4. End-stage renal disease, on hemodialysis. 5. Chronic anemia. 6. GI and DVT prophylaxis. 7. New large exophytic soft tissue mass in perianal region Plan: Will followup the Path report as an outpatient No Acute pathology finding Will followup as o/p with treatment per ID Rec. Monitor electrolyte, per Nephro Rec. Subjective Allergies: Coded Allergies: PENICILLINS (Verified Allergy, Unknown, 10/06/17) Objective Last 24 Hour Vital Signs Date Time Temp Pulse Resp B/P (MAP) Pulse Ox O2 Delivery O2 Flow Rate FiO2 10/14/17 09:02 69 125/68 10/14/17 09:01 69 125/68 10/14/17 08:00 98.0 69 20 125/68 97 98.0 10/14/17 04:00 97.3 68 20 130/73 97 Room Air 97.3 10/14/17 00:00 97.5 67 21 110/65 95 Room Air 97.5 10/13/17 20:53 76 147/83 10/13/17 19:24 98.1 76 20 147/83 97 Room Air 98.1 10/13/17 16:00 97.6 75 20 122/65 98 97.6 10/13/17 12:00 98.2 84 20 124/72 96 Room Air 98.2 Intake and Output 10/13/17 10/14/17 19:00 07:00 Intake Total 570 ml 400 ml Balance 570 ml 400 ml Intake Oral 460 ml 400 ml IV Total 110 ml Height (Feet): 5 Height (Inches): 11.00 Weight (Pounds): 194 Nadir Moise MD Oct 14, 2017 10:56
--- NOTE | 2017-10-14 12:09 | Nephrology Progress Note ---
Assessment/Plan Problem List: (1) ESRD (end stage renal disease) (2) Diabetes (3) Foot osteomyelitis, right (4) Hypertensive kidney disease Assessment ESRD (end stage renal disease) due HD today has left arm fistula Dementia HTN Right foot infection Diabetes Toe deformity, acquired Plan HD next 10/14 BP management ? DC planning Subjective ROS Limited/Unobtainable: No Constitutional: Reports: malaise Objective Objective Last 24 Hour Vital Signs Date Time Temp Pulse Resp B/P (MAP) Pulse Ox O2 Delivery O2 Flow Rate FiO2 10/14/17 09:02 69 125/68 10/14/17 09:01 69 125/68 10/14/17 08:00 98.0 69 20 125/68 97 98.0 10/14/17 04:00 97.3 68 20 130/73 97 Room Air 97.3 10/14/17 00:00 97.5 67 21 110/65 95 Room Air 97.5 10/13/17 20:53 76 147/83 10/13/17 19:24 98.1 76 20 147/83 97 Room Air 98.1 10/13/17 16:00 97.6 75 20 122/65 98 97.6 Intake and Output 10/13/17 10/14/17 19:00 07:00 Intake Total 570 ml 400 ml Balance 570 ml 400 ml Intake Oral 460 ml 400 ml IV Total 110 ml Height (Feet): 5 Height (Inches): 11.00 Weight (Pounds): 194 General Appearance: no apparent distress Objective no change PELON ESCALONA Oct 14, 2017 12:09
[2017-10-14] MEDS ORDERED: BENADRYL25 MG ORAL (12:11)
[2017-10-14] MEDS ORDERED: CEFEPIME-D2 GM/50 ML IVPB ×2 (12:12→12:14)
[2017-10-14] MEDS ORDERED: VANCOMYCIN (12:15)
[2017-10-14] MEDS ORDERED: FOLIC ACID1 MG ORAL (12:15)
[2017-10-14] MEDS ORDERED: MONOJECT H100 UNIT/1 SQ (12:16)
[2017-10-14] MEDS ORDERED: LEVEMIR100 UNIT/1 SUBQ (12:16)
[2017-10-14] MEDS ORDERED: NOVOLOG100 UNIT/3 SUBQ (12:16)
[2017-10-14] MEDS ORDERED: PROTONIX40 MG ORAL (12:17)
[2017-10-14] MEDS ORDERED: CATAPRES0.1 MG ORAL (12:17)
[2017-10-14] MEDS ORDERED: CALCIUM ACETAT667 M1 PO (12:24)
--- NOTE | 2017-10-14 14:02 | Infectious Diseases Prog Note ---
Assessment/Plan Problems: (1) Right foot infection Assessment & Plan: with underlying osteomyelitis of the fifth toe , continue vancomycin with cefepime empiric treatment for 6 weeks , MRI of the foot showed osteomyelitis of the fifth right toe , ESR is elevated both suggesting osteomyelitis in acute phase (2) Foot osteomyelitis, right Assessment & Plan: in the right fifth toe with erosions on X ray , and underlying osteomyelitis, confirmed with MRI of the right foot, will treat with vancomycin and cefepime for 6 weeks with HD .follow up with nuclear power plant engineer. EOT 12/18/17 (3) ESRD (end stage renal disease) Assessment & Plan: on HD renal is following (4) Diabetes Assessment & Plan: recommend tight glycemic control to keep blood glucose between 100-140 (5) Perineal mass in male Assessment & Plan: rule out condyloma ( priya VS Buschke Vicky VS anogenital warts) RPR is negative , and HIV screening . S/P biopsy , pathology is pending , surgery is following Subjective Constitutional: Reports: no symptoms HEENT: Reports: no symptoms Respiratory: Reports: no symptoms Breasts: Reports: no symptoms Cardiovascular: Reports: no symptoms Gastrointestinal/Abdominal: Reports: no symptoms Genitourinary: Reports: no symptoms Neurologic: Reports: no symptoms Psychiatric: Reports: no symptoms Skin: Reports: no symptoms Endocrine: Reports: no symptoms Hematologic: Reports: no symptoms Musculoskeletal: Reports: no symptoms Allergies: Coded Allergies: PENICILLINS (Verified Allergy, Unknown, 10/06/17) Subjective he was up in bed, doing ok, comfortable, denied any pain, afebrile Objective Vital Signs Last 24 Hour Vital Signs Date Time Temp Pulse Resp B/P (MAP) Pulse Ox O2 Delivery O2 Flow Rate FiO2 10/14/17 12:00 97.8 62 18 121/70 96 97.8 10/14/17 09:02 69 125/68 10/14/17 09:01 69 125/68 10/14/17 08:00 98.0 69 20 125/68 97 98.0 10/14/17 04:00 97.3 68 20 130/73 97 Room Air 97.3 10/14/17 00:00 97.5 67 21 110/65 95 Room Air 97.5 10/13/17 20:53 76 147/83 10/13/17 19:24 98.1 76 20 147/83 97 Room Air 98.1 7/4/18 16:00 97.6 75 20 122/65 98 97.6 Height (Feet): 5 Height (Inches): 11.00 Weight (Pounds): 194 General Appearance: WD/WN, no acute distress HEENT: normocephalic, atraumatic, anicteric, mucous membranes moist, PERRL Respiratory/Chest: chest wall non-tender, lungs clear, normal breath sounds, no respiratory distress, no accessory muscle use Cardiovascular: normal peripheral pulses, normal rate, regular rhythm, no gallop/murmur, no JVD Abdomen: normal bowel sounds, soft, non tender, no organomegaly, non distended , no mass, no scars Genitourinary: normal external genitalia Extremities: no cyanosis, no clubbing, other - right small toe swelling and redness Skin: no rash, no lesions, no ulcers Neurologic/Psychiatric: alert, responsive Laboratory Tests Test 10/14/17 13:10 C-Reactive Protein, Quantitative Pending Current Medications Medications (Trade) Dose Ordered Sig/Jose Route PRN Reason Start Time Stop Time Status Last Admin Dose Admin Acetaminophen (Tylenol) 500 mg Q8H PRN ORAL Prn Headache/Temp > 101 10/07/17 00:00 11/06/17 00:00 10/12/17 10:17 Amlodipine Besylate (Norvasc) 10 mg DAILY ORAL 10/07/17 09:00 11/06/17 08:59 10/14/17 09:01 Atorvastatin Calcium (Lipitor) 40 mg BEDTIME ORAL 10/07/17 00:27 11/06/17 00:26 10/13/17 20:53 Calcium Acetate (Phoslo) 1,334 mg TID ORAL 10/12/17 13:00 11/06/17 08:59 10/14/17 09:02 Carvedilol (Coreg) 25 mg EVERY 12 HOURS ORAL 10/07/17 00:28 11/06/17 00:27 10/14/17 09:02 Cefepime HCl 2 gm/ Dextrose 110 ml @ 220 mls/hr EVERY OTHER DAY@1700 IVPB 10/09/17 17:00 10/16/17 16:59 10/13/17 17:04 Clonidine HCl (Catapres Tab) 0.1 mg Q4H PRN ORAL bp over 160 syst 10/07/17 10:15 11/06/17 10:14 Dextrose (Dextrose 50%) 25 ml STAT PRN IV Hypoglycemia 10/07/17 00:00 11/06/17 00:00 Dextrose (Dextrose 50%) 50 ml STAT PRN IV Hypoglycemia 10/07/17 00:00 11/06/17 00:00 Diphenhydramine HCl (Benadryl) 25 mg EVERY 12 HOURS PRN ORAL Itching 10/07/17 00:00 11/06/17 00:00 Diphenoxylate HCl/ Atropine (Lomotil) 2.5 mg Q8HR PRN ORAL Diarrhea 10/07/17 00:00 11/06/17 00:00 Folic Acid (Folate) 1 mg DAILY ORAL 10/07/17 09:00 11/06/17 08:59 10/14/17 09:01 Heparin Sodium (Porcine) (Heparin 5000 units/ml) 5,000 units EVERY 12 HOURS SUBQ 10/07/17 00:33 11/06/17 00:32 10/14/17 09:03 Insulin Aspart (NovoLOG) BEFORE MEALS AND HS SUBQ 10/07/17 06:30 11/06/17 06:29 10/14/17 12:08 Insulin Detemir (Levemir) 10 units BEDTIME SUBQ 10/07/17 21:00 11/06/17 20:59 10/13/17 20:56 Pantoprazole (Protonix) 40 mg DAILY ORAL 10/07/17 09:00 11/06/17 08:59 10/14/17 09:01 Vancomycin HCl (Vanco rx to dose) 1 ea DAILY PRN MISC Per rx protocol (500-750 g) 10/08/17 15:45 11/07/17 15:44 Lorri Lim M.D. Oct 14, 2017 14:02
--- NOTE | 2017-10-15 05:27 | Discharge Summary ---
Discharge Summary Discharge Summary _ DATE OF ADMISSION: 10/06/2017 DATE OF DISCHARGE: 10/14/2017 CONSULTANTS: Dr. Henrik Jacobo BRIEF HOSPITAL COURSE: Patient is a 66-year-old male, with history of end-stage renal disease on hemodialysis, hypertension and diabetes mellitus, who is apparently a resident from [facility] who was transferred to [facility] via EMS for evaluation of increased foot swelling and discomfort. He was previously ambulatory but had inability,brought about by infection on the foot. He was on oral clindamycin without no significant improvement. On evaluation at ED, vital signs were stable. There was noted swelling to the lateral aspect of the left foot and ulceration to the right foot. X-ray of the right foot showed prominent erosions involving the middle and proximal fifth phalange possible osteomyelitis. He was then admitted for evaluation of chronic foot pain concerning for acute on chronic osteo-myelitis. Podiatry was consulted. CRP was elevated. MRI of the right foot was positive for osteomyelitis on the fifth proximal, middle and distal phalanges. There was abnormal soft tissue edema on the fifth toe, most likely soft tissue cellulitis. There was a small focal fluid dorsal to the head of the fourth metatarsal probably small focal joint effusion, no definite drainable abscess collection. Venous duplex was negative for DVT. He was seen by infectious disease specialist and was given vancomycin and cefepime. He was continued on hemodialysis. He has a left arm AV fistula. There was a noted pedunculated, "ground beef" growth/ mass on the perineal area. Patient unable to give details as to prior history and was not aware of such mass. RPR and HIV were negative. On 10/11/2017 he underwent biopsy of the mass. Mass was excised and was sent to pathology for evaluation. Pathology report still pending. Blood culture did not isolate any growth. He remained afebrile. He was eventually cleared to be discharged back to facility. Patient to continue vancomycin 1250 mg IV every dialysis days Wednesday- -Wednesday, pharmacy to dose until 11/20/2017. FINAL DIAGNOSES: Acute on chronic right foot osteomyelitis Chronic Charcot feet (right more than left) Diabetes mellitus type 2 End-stage renal disease on hemodialysis Chronic anemia New large exophytic soft tissue mass and perianal region status post biopsy Hypertensive kidney disease DISPOSITION: Patient was discharged back to [facility]. DISCHARGE MEDICATIONS: Refer to Discharge Medication List. DISCHARGE INSTRUCTIONS: Follow up with PCP in a week. Continue IV antibiotic as stated above. I have been assigned to dictate discharge summary on this account, and I was not involved in the patient's management. Yuli Leung NP Oct 15, 2017 05:27
== END 2017-10-14 16:30 | disposition home or self-care (01) | DRG 344 ==
LOC: EDBD 19:31 → EMR 19:48 → 4W 21:54 → EDBEDREQ 22:24 → 4W 10-13 14:06
PROC: 5A1D70Z Performance of Urinary Filtration, Intermittent, Less than 6 Hours Per Day (ICD-10-PCS; 2017-10-07)
PROC: 5A1D70Z Performance of Urinary Filtration, Intermittent, Less than 6 Hours Per Day (ICD-10-PCS; 2017-10-09)
PROC: 0KB Muscles, Excision (ICD-10-PCS; principal; 2017-10-11)
PROC: 5A1D70Z Performance of Urinary Filtration, Intermittent, Less than 6 Hours Per Day (ICD-10-PCS; 2017-10-12)
PROC: 5A1D70Z Performance of Urinary Filtration, Intermittent, Less than 6 Hours Per Day (ICD-10-PCS; 2017-10-14)
DX: M86.171 Other acute osteomyelitis, right ankle and foot (principal); I12.0 Hypertensive chronic kidney disease with stage 5 chronic kidney disease or end stage renal disease; N18.6 End stage renal disease; F03.90 Unspecified dementia, unspecified severity, without behavioral disturbance, psychotic disturbance, mood disturbance, and anxiety; E11.22 Type 2 diabetes mellitus with diabetic chronic kidney disease; E11.610 Type 2 diabetes mellitus with diabetic neuropathic arthropathy; Z99.2 Dependence on renal dialysis; D64.9 Anemia, unspecified; M79.9 Soft tissue disorder, unspecified; Z88.0 Allergy status to penicillin; Z89.422 Acquired absence of other left toe(s)
CPT/HCPCS: 36415; 71045; 74176; 80053; 80061; 80202; 82962; 83036; 83735; 83880; 84100; 84443; 84484; 84550; 85025; 85610; 85651; 85730; 86140; 86592; 86703; 86850; 86900; 86901; 87040; 87081; 93306; 93970; 99285; J1815; S5561

== ENCOUNTER 2018-07-13 17:28 | Emergency (ER) | payer OTHER ==
[~2018-07-13] VITALS: Ht 172.7 cm; Wt 77.1 kg
[~2018-07-13 17:28] MED LIST changes: +AMLODIPINE BESY10 MG ORAL; +ATORVASTATIN CA40 MG ORAL; +BASAGLAR INJ; +BENADRYL25 MG ORAL; +BENAZEPRIL HCL20 MG ORAL; +CALCIUM ACETAT667 M1 PO; +CARVEDILOL25 MG ORAL; +CATAPRES0.1 MG ORAL; +CEFEPIME-D2 GM/50 ML IVPB; +DIPHENOXYLATE-1 EACH PO; +FOLIC ACID1 MG ORAL; +LEVEMIR FL100 UNIT/1 SUBQ; +LEVEMIR100 UNIT/1 SUBQ; +MONOJECT H100 UNIT/1 SQ; +NOVOLOG100 UNIT/3 SUBQ; +PROTONIX40 MG ORAL; +VANCOMYCIN
--- NOTE | 2018-07-13 17:30 | NUR ---
ED Nurse Note: Pt was brought in to ER by ambulance due to urogenital bleeding from [facility]. pt Palauan speaker, aao x2, skin dry but clean and intact. pt has hernia/tumor looking mass in genital area. pt denied pain. per pt he is ambulatory. pt walked [facility] to ER bed.
--- NOTE | 2018-07-13 17:40 | NUR ---
ED Nurse Note: ERMD at bedside looking at the genital site.
--- NOTE | 2018-07-13 17:40 | NUR ---
ED Nurse Note: Pt has dialysis shunt on Lt upper arm. covered with dry dressing.
[2018-07-13 17:41] VITALS: BP 157/68
[2018-07-13] MEDS ORDERED: BENAZEPRIL HCL5 MG ORAL (17:49)
--- NOTE | 2018-07-13 18:06 | NUR ---
ED Nurse Note: ERMD calling the facility pt came from and pt's PCP.
--- NOTE | 2018-07-13 18:31 | NUR ---
ED Nurse Note: ROBERTD contacting pt's urologist.
--- NOTE | 2018-07-13 18:40 | NUR ---
ED Nurse Note: Pt had 1 medium BM. cleaned up. coccyx skin clean and intact.
--- NOTE | 2018-07-13 18:52 | NUR ---
ED Nurse Note: KUMAR consulted with pt's pcp and urologist and decided to send pt back to SNF due to no new condition, no bleeding, no pain onset. transportation was set up for 1745.
--- NOTE | 2018-07-13 18:59 | NUR ---
ED Nurse Note: Fang Murphy was informed that pt's returning.
[2018-07-13 19:08] VITALS: BP 145/70
--- NOTE | 2018-07-13 19:14 | NUR ---
HAND-OFF: Report given to EHSAN Maldonado. pt is waiting for the transportation. no order to carry at this moment. Iv will be removed prior to dc.
--- NOTE | 2018-07-13 19:15 | NUR ---
ED Nurse Note: Patient resting comfortably in the [address], called [facility] facility to give report since transport is due to arrive at 194, Gave report to Nya, a caregier at the facility since there is no nurse at the facility.
--- NOTE | 2018-07-13 20:21 | NUR ---
ED Nurse Note: Spoke with Shelley at [facility], informing her that the patient is returning.
--- NOTE | 2018-07-13 20:43 | NUR ---
ED Nurse Note: Patient still resting in hallway comfortably.
--- NOTE | 2018-07-13 21:58 | Emergency Room Report ---
History of Present Illness General Chief Complaint: Male Urogenital Problems Source: Patient Present Illness HPI 67-year-old male presents ED for evaluation. Brought in by EMS from group home facility. Patient noted to have bleeding from a mass on his scrotum. Patient states he does not know how long it is been there. Denies any pain. History of end-stage renal disease on dialysis. Denies chest pain or shortness of breath. Denies fevers or chills. No other aggravating relieving factors. Denies any other associated symptoms Allergies: Coded Allergies: PENICILLINS (Verified Allergy, Unknown, 10/06/17) Patient History Past Medical History: DM, HTN, dementia, renal disease, dialysis Past Surgical History: none Pertinent Family History: none Social History: Denies: smoking, alcohol use, drug use Immunizations: UTD Reviewed Nursing Documentation: PMH: Agreed; PSxH: Agreed Nursing Documentation-PMH Past Medical History: No History, Except For Hx Hypertension: Yes Hx Diabetes: Yes Hx Cancer: No Hx Gastrointestinal Problems: No Hx Dialysis: Yes - T, TH, SAT, -Shunt on Left arm Hx Dementia: Yes Review of Systems All Other Systems: negative except mentioned in HPI Physical Exam Vital Signs Date Time Temp Pulse Resp B/P (MAP) Pulse Ox O2 Delivery O2 Flow Rate FiO2 07/13/18 17:21 98.8 74 16 167/88 94 Room Air Sp02 EP Interpretation: reviewed, normal General Appearance: no apparent distress, alert, GCS 15, non-toxic Head: normocephalic Eyes: bilateral eye normal inspection, bilateral eye PERRL ENT: normal ENT inspection, normal voice Neck: normal inspection Respiratory: chest non-tender, lungs clear, normal breath sounds, speaking full sentences Cardiovascular #1: regular rate, rhythm, no edema Gastrointestinal: normal bowel sounds, non tender, soft, non-distended, no guarding, no rebound Rectal: deferred Genitourinary: no CVA tenderness, other - fungating mass on scrotum. no bleeding or discharge Musculoskeletal: normal inspection Neurologic: alert, oriented x3, responsive, motor strength/tone normal, sensory intact, speech normal Psychiatric: normal inspection Skin: normal inspection Lymphatic: normal inspection Medical Decision Making Diagnostic Impression: Primary Impression: Scrotal mass ER Course Hospital Course 67-year-old male presents with bleeding from scrotal mass Differential diagnoses include: Cellulitis, dermatitis, insect bite, abscess Clinical course Patient placed on stretcher. After initial history, physical exam reveals a middle aged male in no acute distress. On exam there is a fungating mass noted on the scrotum. No erythema or induration. No bleeding or discharge. I discussed findings with technology administrator of facility. She states that patient has been a resident of facility since 2017 and he presented with that mass on admission. Has been to multiple consults without a definitive diagnosis. Mass has been stable until now when it started to bleed discussed findings with Urology Dr Thorne; he agrees that there is no immediate intervention. Possibly condyloma. Will definitely require excision and removal but can be performed in outpatient setting. He agreed to see patient in his office as outpatient I explained to the technology administrator that it is not actively bleeding here. No laceration. Patient can be discharged back to facility with urology referral Diagnosis - Scrotal Mass stable and discharged to SNF. Instructed to followup with Urology. Instructed return to ED if symptoms recur or worsen Last Vital Signs Date Time Temp Pulse Resp B/P (MAP) Pulse Ox O2 Delivery O2 Flow Rate FiO2 07/13/18 19:08 98.3 80 16 145/70 99 Room Air Status: improved Disposition: XFER SNF Condition: Stable Referrals: Eddie Thorne MD Patient Instructions: Scrotal Masses Kaushal Albarado MD Jul 13, 2018 21:58
--- NOTE | 2018-07-13 21:58 | NUR ---
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 Patient is awake and alert, A&Ox4, ambulatory with steady gait and a little agitated because he is ready to go. Report given to LUPILLO and to Nya at patient's facility. Patient departed with BLS transport, IV removed.
== END 2018-07-13 21:58 ==
LOC: EDBD 17:28 → EMR 18:11
DX: N50.9 Disorder of male genital organs, unspecified (principal); I12.0 Hypertensive chronic kidney disease with stage 5 chronic kidney disease or end stage renal disease; E11.22 Type 2 diabetes mellitus with diabetic chronic kidney disease; N18.6 End stage renal disease; Z99.2 Dependence on renal dialysis; F03.90 Unspecified dementia, unspecified severity, without behavioral disturbance, psychotic disturbance, mood disturbance, and anxiety
CPT/HCPCS: 99282